=== PATIENT | female | born 1945 | race African-American/Black ===

== ENCOUNTER 2019-09-09 12:42 | Inpatient (IN) | payer MEDICARE, BC ==
[~2019-09-09] VITALS: Ht 167.6 cm; Wt 62.0 kg
[2019-09-09 13:17] LABS: BASO # 0.1 x10^3/uL (0.0-0.2); BASO % 1 % (0-3); EOS # 0.2 x10^3/uL (0.0-0.7); EOS % 2 % (0-3); HEMATOCRIT 30.9 % (36.0-47.0); HEMOGLOBIN 10.1 g/dL (12.0-15.5); LYMPH # 0.5 x10^3/uL (1.0-4.8); LYMPH % 5 % (24-48); MEAN CORPUSCULAR HEMOGLOBIN 34 pg (25-35); MEAN CORPUSCULAR HGB CONC 33 g/dL (31-37); MEAN CORPUSCULAR VOLUME 106 fL (79-100); MONO # 0.7 x10^3/uL (0.0-1.1); MONO % 6 % (0-9); NEUT # 9.6 x10^3/uL (1.8-7.7); NEUT % 87 % (31-73); PLATELET COUNT 238 x10^3/uL (140-400); RED BLOOD COUNT 2.93 x10^6/uL (3.50-5.40); RED CELL DISTRIBUTION WIDTH 17.5 % (11.5-14.5); WHITE BLOOD COUNT 11.1 x10^3/uL (4.0-11.0)
[2019-09-09 13:22] LABS: PROTHROMBIN TIME PATIENT 13.8 SEC (11.7-14.0)
[2019-09-09] MEDS ORDERED: MORPHINE SULFATE 4 MG/ML VIAL. IV ONE (13:30)
[2019-09-09] MEDS ORDERED: ONDANSETRON PF 4 MG/2 ML VIAL. IVP ONE (13:30)
[2019-09-09 13:31] LABS: CALCIUM 8.6 mg/dL (8.5-10.1); GFR 24.2; POTASSIUM 4.4 mmol/L (3.5-5.1)
[2019-09-09 13:37] LABS: ALBUMIN 3.7 g/dL (3.4-5.0); ALBUMIN/GLOBULIN RATIO 1.1 (1.0-1.7); TOTAL BILIRUBIN 0.4 mg/dL (0.2-1.0); TOTAL PROTEIN 7.1 g/dL (6.4-8.2)
--- NOTE | 2019-09-09 13:39 | PHYS DOC ---
General Adult EDM: Chief Complaint: HIP PAIN HPI: HPI: Patient is a 74 year old female presenting to the ED with a chief complaint of a fall. Patient states that she was home in her kitchen when she fell and landed on her right hip. Patient denies hitting her head. Patient states that she does not take a blood thinner. Patient does state that she has a history of diabetes and high blood pressure. Patient states that she had a pop on her right hip. Patient complains of tenderness to the right hip. Review of Systems: Review of Systems: Constitutional: Denies fever or chills. [] Eyes: Denies change in visual acuity. [] HENT: Denies nasal congestion or sore throat. [] Respiratory: Denies cough or shortness of breath. [] Cardiovascular: Denies chest pain or edema. [] GI: Denies abdominal pain, nausea, vomiting, bloody stools or diarrhea. [] : Denies dysuria. [] Musculoskeletal: She is like complains of pain to her right hip Heart Score: Risk Factors: Risk Factors: DM, Current or recent (<one month) smoker, HTN, HLP, family history of CAD, obesity. Risk Scores: Score 0 - 3: 2.5% MACE over next 6 weeks - Discharge Home Score 4 - 6: 20.3% MACE over next 6 weeks - Admit for Clinical Observation Score 7 - 10: 72.7% MACE over next 6 weeks - Early Invasive Strategies Current Medications: Current Medications Medications (Trade) Dose Ordered Sig/Liam Start Time Stop Time Status Last Admin Dose Admin Morphine Sulfate (Morphine Sulfate) 4 mg 1X ONCE 09/09/19 13:30 09/09/19 13:31 09/09/19 13:25 4 MG Ondansetron HCl (Zofran) 4 mg 1X ONCE 09/09/19 13:30 09/09/19 13:31 09/09/19 13:24 4 MG Allergies: Allergies: Allergies Coded Allergies Type Severity Reaction Last Updated Verified No Known Drug Allergies 09/09/19 No Physical Exam: PE: Constitutional: Well developed, well nourished, no acute distress, non-toxic appearance. [] HENT: Normocephalic, atraumatic Eyes: EOMI Neck: Normal range of motion, Supple Cardiovascular:Heart rate regular rhythm Lungs & Thorax: Bilateral breath sounds clear to auscultation [] Abdomen: Bowel sounds normal, soft, no tenderness Extremities: Tenderness to the right hip. Patient is neurovascularly intact right lower extremity. Neurologic: Alert and oriented X 3 Current Patient Data: Labs: Laboratory Tests Test 09/09/19 13:00 White Blood Count 11.1 x10^3/uL (4.0-11.0) H Red Blood Count 2.93 x10^6/uL (3.50-5.40) L Hemoglobin 10.1 g/dL (12.0-15.5) L Hematocrit 30.9 % (36.0-47.0) L Mean Corpuscular Volume 106 fL (79-100) H Mean Corpuscular Hemoglobin 34 pg (25-35) Mean Corpuscular Hemoglobin Concent 33 g/dL (31-37) Red Cell Distribution Width 17.5 % (11.5-14.5) H Platelet Count 238 x10^3/uL (140-400) Neutrophils (%) (Auto) 87 % (31-73) H Lymphocytes (%) (Auto) 5 % (24-48) L Monocytes (%) (Auto) 6 % (0-9) Eosinophils (%) (Auto) 2 % (0-3) Basophils (%) (Auto) 1 % (0-3) Neutrophils # (Auto) 9.6 x10^3/uL (1.8-7.7) H Lymphocytes # (Auto) 0.5 x10^3/uL (1.0-4.8) L Monocytes # (Auto) 0.7 x10^3/uL (0.0-1.1) Eosinophils # (Auto) 0.2 x10^3/uL (0.0-0.7) Basophils # (Auto) 0.1 x10^3/uL (0.0-0.2) Platelet Estimate Pending Prothrombin Time 13.8 SEC (11.7-14.0) Prothrombin Time INR 1.1 (0.8-1.1) Laboratory Tests 09/09/19 13:00 EKG: EKG: [] Radiology/Procedures: Radiology/Procedures: [] Impression: IMPRESSION: Mildly displaced comminuted intertrochanteric fracture of the proximal right femur. Course & Med Decision Making: Course & Med Decision Making Pertinent Labs and Imaging studies reviewed. (See chart for details) Ordered labs, x-rays right hip and pelvis. Also ordered morphine and Zofran. X-ray shows a mildly displaced comminuted intertrochanteric right hip fracture. Discussed results and plan of care with patient. I discussed case with Dr. Dia at 1:45 PM. He recommends that patient be admitted to the hospitalist service. Patient is given another dose of IV pain medication in the ER and Valium for the muscle cramps. Nawaf Disclaimer: Nawaf Disclaimer: This electronic medical record was generated, in whole or in part, using a voice recognition dictation system. Departure Departure Impression: Primary Impression: Hip fracture, right Disposition: ADMITTED INPATIENT Admitting Physician: SEB Condition: IMPROVED Justicifation of Admission Dx: Justifications for Admission: Justification of Admission Dx: Yes Fracture: Fracture PRADIP BAI DO Sep 09, 2019 13:39
--- NOTE | 2019-09-09 13:39 | RAD ---
Single view pelvis and two-view right hip dated 09/09/2019. No comparison available. Clinical data indication: Pain after injury. FINDINGS: Single view pelvis two-view right hip show comminuted fracture of the intertrochanteric right femur with mild displacement and mild medial angulation at the fracture site. No definite extension to the femoral neck. Pelvic ring is intact. No additional fractures are seen. Mild degenerative change of the bilateral hip joint and bilateral SI joint with spondylotic change of the lower lumbar spine. IMPRESSION: Mildly displaced comminuted intertrochanteric fracture of the proximal right femur. Electronically signed by: Ramon Esparza MD (09/09/2019 1:36 PM) [id number]
[2019-09-09] MEDS ORDERED: diazePAM 5 MG TABLET PO ONE (14:00)
[2019-09-09] MEDS ORDERED: HYDROmorphone 2 MG/ML VIAL IV ONE (14:00)
[2019-09-09] MEDS ORDERED: LORazepam 0.5 MG TABLET PO PRN (14:15)
[2019-09-09] MEDS ORDERED: ONDANSETRON PF 4 MG/2 ML VIAL. IV PRN (14:15)
[2019-09-09] MEDS ORDERED: DOCUSATE SODIUM 100 MG CAPSULE. PO PRN ×2 (14:15)
[2019-09-09] MEDS ORDERED: guaiFENesin ORAL 200 MG/10 ML LIQUID. PO PRN (14:15)
[2019-09-09] MEDS ORDERED: ZOLPIDEM 5 MG TABLET. PO PRN (14:15)
[2019-09-09] MEDS ORDERED: ALBUTEROL SULFATE 2.5 MG/3 ML NEBU. NEB PRN (14:15)
[2019-09-09] MEDS ORDERED: ACETAMINOPHEN 325 MG TABLET. PO PRN (14:15)
[2019-09-09 14:18] LABS: % EOS 2 % (0-5); % SEGS 85 % (35-66); PLT ESTIMATE ADEQUATE (ADEQUATE)
[2019-09-09 14:19] LABS: % LYMPHS 11 % (24-48); % MONOS 2 % (0-10); ANISOCYTOSIS SLIGHT
[2019-09-09] MEDS: HYDROmorphone 2 MG/ML VIAL IV PRN ×2 (15:06→17:48)
--- NOTE | 2019-09-09 16:27 | PDOC1 ---
History and Physical Date of Admission Date of Admission 09/09/2019 Identification/Chief Complaint Chief Complaint I fell Source Source: Chart review, Patient History of Present Illness History of Present Illness Patient is a 74-year-old female with past medical history of hypertension dyslipidemia who was in her usual state of health until this morning when well going to her kitchen apparently she fell from her own height landing on her right side. The patient experienced excruciating pain immediately there are no deformities evident but she could not stand due to the pain. The patient denies hearing any cracking sounds she denies lightheadedness prior to her event history of palpitations no history of atrial fibrillation or irregular heart beat, the patient denies seizure-like activity and certainly describes event that is a slip and fall. She was found to have a comminuted right femoral fracture and orthopedic data warehouse consultant was informed about the findings. We have been asked to admit the patient for definitive treatment of her fracture. That the time my evaluation the patient is in no acute distress she denies any h eadache blurred vision no chest pain or palpitations no recent paroxysmal internal dyspnea no orthopnea or symptoms consistent with chronic congestive heart failure. The patient denies abdominal pain no nausea no vomiting no diarrhea has been reported and no peripheral edema. Patient seems to be maximally optimized from a medical standpoint of view and the plan of care has been explained in detail to her and her sister who is at bedside. Orthopedic data warehouse consultant has been informed about the patient and has requested to keep the patient n.p.o. after midnight for possible surgery in the a.m. Patient seems to be medically optimized for planned surgery and she is undergoing a moderate risk surgery most likely. Reassurance has been provided Past Medical History Cardiovascular: HTN, Hyperlipidemia Endocrine: Diabetes Past Surgical History Past Surgical History: No pertinent history Family History Family History: Other (Reviewed and found negative noncontributory) Social History Smoke: No ALCOHOL: none Drugs: None Current Problem List Problem List Problems Medical Problems: (1) Hip fracture, right Status: Acute Current Medications Current Medications Current Medications Medications (Trade) Dose Ordered Sig/Liam Start Time Stop Time Status Last Admin Dose Admin Acetaminophen (Tylenol) 650 mg PRN Q4HRS PRN 09/09/19 14:15 Albuterol Sulfate (Ventolin Neb Soln) 2.5 mg PRN Q4HRS PRN 09/09/19 14:15 Diazepam (Valium) 5 mg 1X ONCE 09/09/19 14:00 09/09/19 14:01 DC 09/09/19 13:54 5 MG Docusate Sodium (Colace) 100 mg PRN DAILY PRN 09/09/19 14:15 UNV Guaifenesin (Robitussin) 200 mg PRN Q4HRS PRN 09/09/19 14:15 Hydromorphone HCl (Dilaudid) 1 mg PRN Q2HRS PRN 09/09/19 14:15 09/09/19 15:06 1 MG Lorazepam (Ativan) 0.5 mg PRN Q4HRS PRN 09/09/19 14:15 Morphine Sulfate (Morphine Sulfate) 4 mg 1X ONCE 09/09/19 13:30 09/09/19 13:31 DC 09/09/19 13:25 4 MG Ondansetron HCl (Zofran) 4 mg PRN Q4HRS PRN 09/09/19 14:15 Zolpidem Tartrate (Ambien) 5 mg PRN QHS PRN 09/09/19 14:15 Allergies Allergies Allergies Coded Allergies Type Severity Reaction Last Updated Verified No Known Drug Allergies 09/09/19 No ROS Review of System CONSTITUTIONAL: No fever or chills EYES: No recent changes SKIN: No rash or itching CARDIOVASCULAR: No chest pain, syncope, palpitations, or edema RESPIRATORY: No SOB or cough GASTROINTESTINAL: No nausea, vomiting or abdominal pain NEUROLOGICAL: No headaches or weakness ENDOCRINE: No cold or heat intolerance GENITOURINARY: No urgency or frequency of urination MUSCULOSKELETAL: No back pain or joint pain LYMPHATICS: No enlarged lymph nodes PSYCHIATRIC: No anxiety or depression Physical Exam Physical Exam GEN.: No apparent distress. Alert and oriented. HEENT: Head is normocephalic, atraumatic NECK: Supple. LUNGS: Clear to auscultation. HEART: RRR, S1, S2 present. Peripheral pulses intact ABDOMEN: Soft, nontender. Positive bowel sounds. EXTREMITIES: Without any cyanosis. NEUROLOGIC: Normal speech, normal tone PSYCHIATRIC: Normal affect, normal mood. SKIN: No ulcerations Vitals Vitals Vital Signs Date Time Temp Pulse Resp B/P (MAP) Pulse Ox O2 Delivery O2 Flow Rate FiO2 09/09/19 15:48 70 18 184/79 (114) 100 Nasal Cannula 2.0 09/09/19 12:50 98.6 98.6 Labs Labs Laboratory Tests Test 09/09/19 13:00 White Blood Count 11.1 x10^3/uL (4.0-11.0) Red Blood Count 2.93 x10^6/uL (3.50-5.40) Hemoglobin 10.1 g/dL (12.0-15.5) Hematocrit 30.9 % (36.0-47.0) Mean Corpuscular Volume 106 fL (79-100) Mean Corpuscular Hemoglobin 34 pg (25-35) Mean Corpuscular Hemoglobin Concent 33 g/dL (31-37) Red Cell Distribution Width 17.5 % (11.5-14.5) Platelet Count 238 x10^3/uL (140-400) Neutrophils (%) (Auto) 87 % (31-73) Lymphocytes (%) (Auto) 5 % (24-48) Monocytes (%) (Auto) 6 % (0-9) Eosinophils (%) (Auto) 2 % (0-3) Basophils (%) (Auto) 1 % (0-3) Neutrophils # (Auto) 9.6 x10^3/uL (1.8-7.7) Lymphocytes # (Auto) 0.5 x10^3/uL (1.0-4.8) Monocytes # (Auto) 0.7 x10^3/uL (0.0-1.1) Eosinophils # (Auto) 0.2 x10^3/uL (0.0-0.7) Basophils # (Auto) 0.1 x10^3/uL (0.0-0.2) Segmented Neutrophils % 85 % (35-66) Lymphocytes % 11 % (24-48) Monocytes % 2 % (0-10) Eosinophils % 2 % (0-5) Platelet Estimate Adequate (ADEQUATE) Anisocytosis Slight Macrocytosis Slight Prothrombin Time 13.8 SEC (11.7-14.0) Prothromb Time International Ratio 1.1 (0.8-1.1) Sodium Level 135 mmol/L (136-145) Potassium Level 4.4 mmol/L (3.5-5.1) Chloride Level 101 mmol/L (98-107) Carbon Dioxide Level 25 mmol/L (21-32) Anion Gap 9 (6-14) Blood Urea Nitrogen 36 mg/dL (7-20) Creatinine 2.0 mg/dL (0.6-1.0) Estimated GFR (Cockcroft-Gault) 24.2 BUN/Creatinine Ratio 18 (6-20) Glucose Level 251 mg/dL (70-99) Calcium Level 8.6 mg/dL (8.5-10.1) Total Bilirubin 0.4 mg/dL (0.2-1.0) Aspartate Amino Transf (AST/SGOT) 21 U/L (15-37) Alanine Aminotransferase (ALT/SGPT) 17 U/L (14-59) Alkaline Phosphatase 83 U/L (46-116) Total Protein 7.1 g/dL (6.4-8.2) Albumin 3.7 g/dL (3.4-5.0) Albumin/Globulin Ratio 1.1 (1.0-1.7) Laboratory Tests Test 09/09/19 13:00 White Blood Count 11.1 x10^3/uL (4.0-11.0) Red Blood Count 2.93 x10^6/uL (3.50-5.40) Hemoglobin 10.1 g/dL (12.0-15.5) Hematocrit 30.9 % (36.0-47.0) Mean Corpuscular Volume 106 fL (79-100) Mean Corpuscular Hemoglobin 34 pg (25-35) Mean Corpuscular Hemoglobin Concent 33 g/dL (31-37) Red Cell Distribution Width 17.5 % (11.5-14.5) Platelet Count 238 x10^3/uL (140-400) Neutrophils (%) (Auto) 87 % (31-73) Lymphocytes (%) (Auto) 5 % (24-48) Monocytes (%) (Auto) 6 % (0-9) Eosinophils (%) (Auto) 2 % (0-3) Basophils (%) (Auto) 1 % (0-3) Neutrophils # (Auto) 9.6 x10^3/uL (1.8-7.7) Lymphocytes # (Auto) 0.5 x10^3/uL (1.0-4.8) Monocytes # (Auto) 0.7 x10^3/uL (0.0-1.1) Eosinophils # (Auto) 0.2 x10^3/uL (0.0-0.7) Basophils # (Auto) 0.1 x10^3/uL (0.0-0.2) Segmented Neutrophils % 85 % (35-66) Lymphocytes % 11 % (24-48) Monocytes % 2 % (0-10) Eosinophils % 2 % (0-5) Platelet Estimate Adequate (ADEQUATE) Anisocytosis Slight Macrocytosis Slight Prothrombin Time 13.8 SEC (11.7-14.0) Prothromb Time International Ratio 1.1 (0.8-1.1) Sodium Level 135 mmol/L (136-145) Potassium Level 4.4 mmol/L (3.5-5.1) Chloride Level 101 mmol/L (98-107) Carbon Dioxide Level 25 mmol/L (21-32) Anion Gap 9 (6-14) Blood Urea Nitrogen 36 mg/dL (7-20) Creatinine 2.0 mg/dL (0.6-1.0) Estimated GFR (Cockcroft-Gault) 24.2 BUN/Creatinine Ratio 18 (6-20) Glucose Level 251 mg/dL (70-99) Calcium Level 8.6 mg/dL (8.5-10.1) Total Bilirubin 0.4 mg/dL (0.2-1.0) Aspartate Amino Transf (AST/SGOT) 21 U/L (15-37) Alanine Aminotransferase (ALT/SGPT) 17 U/L (14-59) Alkaline Phosphatase 83 U/L (46-116) Total Protein 7.1 g/dL (6.4-8.2) Albumin 3.7 g/dL (3.4-5.0) Albumin/Globulin Ratio 1.1 (1.0-1.7) Images Images Single view pelvis and two-view right hip dated 09/09/2019. No comparison available. Clinical data indication: Pain after injury. FINDINGS: Single view pelvis two-view right hip show comminuted fracture of the intertrochanteric right femur with mild displacement and mild medial angulation at the fracture site. No definite extension to the femoral neck. Pelvic ring is intact. No additional fractures are seen. Mild degenerative change of the bilateral hip joint and bilateral SI joint with spondylotic change of the lower lumbar spine. IMPRESSION: Mildly displaced comminuted intertrochanteric fracture of the proximal right femur. Electronically signed by: Ramon Esparza MD (09/09/2019 1:36 PM) [id number] VTE Prophylaxis Ordered VTE Prophylaxis Devices: Yes VTE Pharmacological Prophylaxi: Yes Assessment/Plan Assessment/Plan mildly displaced comminuted intertrochanteric right hip fracture. Essential hypertension Dyslipidemia Leukocytosis which may be reactive to the trauma Macrocytic anemia Hyponatremia Chronic kidney disease stage IV Hyperglycemia most likely reactive Plan Restart home medication Glycemic control Beta-jillian perioperatively Patient is medically optimized and at acceptable risk for planned surgery which is intermediate risk Pain management DVT prophylaxis as per orthopedic data warehouse consultant Further recommendations based on clinical course Justicifation of Admission Dx: Justifications for Admission: Justification of Admission Dx: Yes Fracture: Fracture MARY LOU MCGUIRE MD Sep 09, 2019 16:27
[2019-09-09] MEDS ORDERED: INSULIN GLARGINE SYRINGE. SQ ONE (16:30)
[2019-09-09] MEDS ORDERED: DEXTROSE 50% 25 GM / 50ML DISP.SYRIN. IV PRN (16:30)
[2019-09-09] MEDS ORDERED: METO-247 PO (16:44)
[2019-09-09] MEDS ORDERED: SITA100T PO (16:47)
[2019-09-09] MEDS ORDERED: METF100010 PO (16:47)
[2019-09-09] MEDS ORDERED: LISI-130 PO (16:47)
[2019-09-09] MEDS ORDERED: SIMV20TA18 PO (16:47)
[2019-09-09] MEDS: INSULIN LISPRO 300 UNITS/3 ML VIAL. SQ SCH (17:56)
[2019-09-09 19:00] VITALS: BP 143/68
[2019-09-09 23:00] VITALS: BP 141/63
[2019-09-10] VITALS (7 sets, daily range): BP systolic 141–161; BP diastolic 47–71
[2019-09-10] MEDS: HYDROmorphone 2 MG/ML VIAL IV PRN ×2 (02:40→21:41)
[2019-09-10] MEDS ORDERED: MORPHINE SULFATE 5 MG, KETOROLAC 30MG VIAL 30 MG, ROPIVacaine 0.5% PF 60 ML, EPINEPHrin... INT ART ONE (08:00)
--- NOTE | 2019-09-10 08:06 | PDOC2 ---
CONSULT Date of Consult Date of Consult DATE: 09/10/19 TIME: 08:02 Reason for Consult Reason for Consult: Right hip fracture Referring Physician Referring Physician: Renée Identification/Chief Complaint Chief Complaint Right hip pain Source Source: Chart review, Patient History of Present Illness Reason for Visit: Patient is a very pleasant 74-year-old community ambulator who had a ground- level fall at her home yesterday. Due to pain and inability to ambulate she was brought into the emergency department where he was found she had a right intertrochanteric hip fracture. She denies any preceding hip pain. She denies any preceding symptoms or hitting her head on her way down. Her hip pain is worse with any attempted ambulation or movement of her leg. It is a little bit better at rest. She describes it as achy and cramping in nature. It does radiate down her thigh little ways but does not cross her knee. She denies any other pain elsewhere. Past Medical History Cardiovascular: HTN, Hyperlipidemia Endocrine: Diabetes Past Surgical History Past Surgical History: No pertinent history Family History Family History: Other (Reviewed and found negative noncontributory) Social History No ALCOHOL: none Drugs: None Current Problem List Problem List Problems Medical Problems: (1) Hip fracture, right Status: Acute Current Medications Current Medications Current Medications Morphine Sulfate (Morphine Sulfate) 4 mg 1X ONCE IV Last administered on 09/09/19at 13:25; Start 09/09/19 at 13:30; Stop 09/09/19 at 13:31; Status DC Ondansetron HCl (Zofran) 4 mg 1X ONCE IVP Last administered on 09/09/19at 13:24; Start 09/09/19 at 13:30; Stop 09/09/19 at 13:31; Status DC Hydromorphone HCl (Dilaudid) 1 mg 1X ONCE IV Last administered on 09/09/19at 13:56; Start 09/09/19 at 14:00; Stop 09/09/19 at 14:01; Status DC Diazepam (Valium) 5 mg 1X ONCE PO Last administered on 09/09/19at 13:54; Start 09/09/19 at 14:00; Stop 09/09/19 at 14:01; Status DC Ondansetron HCl (Zofran) 4 mg PRN Q4HRS PRN IV NAUSEA/VOMITING; Start 09/09/19 at 14:15 Zolpidem Tartrate (Ambien) 5 mg PRN QHS PRN PO INSOMNIA; Start 09/09/19 at 1 4:15 Acetaminophen (Tylenol) 650 mg PRN Q4HRS PRN PO TEMP OVER 100.4F OR MILD PAIN; Start 09/09/19 at 14:15 Docusate Sodium (Colace) 100 mg PRN BID PRN PO HARD STOOLS; Start 09/09/19 at 14:15 Albuterol Sulfate (Ventolin Neb Soln) 2.5 mg PRN Q4HRS PRN NEB SHORTNESS OF BREATH; Start 09/09/19 at 14:15 Guaifenesin (Robitussin) 200 mg PRN Q4HRS PRN PO COUGH; Start 09/09/19 at 14:15 Lorazepam (Ativan) 0.5 mg PRN Q4HRS PRN PO ANXIETY / AGITATION; Start 09/09/19 at 14:15 Hydromorphone HCl (Dilaudid) 1 mg PRN Q2HRS PRN IV SEVERE PAIN 7-10 Last administered on 09/10/19at 02:40; Start 09/09/19 at 14:15 Docusate Sodium (Colace) 100 mg PRN DAILY PRN PO HARD STOOLS; Start 09/09/19 at 14:15; Status UNV Insulin Human Lispro (HumaLOG) 0-7 UNITS TIDWMEALS SQ Last administered on 09/09/19at 17:56; Start 09/09/19 at 17:00 Dextrose (Dextrose 50%-Water Syringe) 12.5 gm PRN Q15MIN PRN IV SEE COMMENTS; Start 09/09/19 at 16:30 Insulin Glargine (Lantus Syringe) 10 unit ONCE ONCE SQ ; Start 09/09/19 at 16:30; Stop 09/09/19 at 16:31; Status DC Morphine Sulfate 5 mg/Ketorolac Tromethamine 30 mg/Ropivacaine 60 ml/Epinephrine HCl 0.5 mg/Sodium Chloride 100 ml @ 100 mls/hr 1X ONCE INT ART ; Start 09/10/19 at 08:00; Stop 09/10/19 at 08:59 Active Scripts Active Reported Lisinopril 40 Mg Tablet 1 Tab PO DAILY Simvastatin 20 Mg Tablet 1 Tab PO QHS Januvia (Sitagliptin Phosphate) 100 Mg Tablet 100 Mg PO DAILY Metformin Hcl Er (Metformin Hcl) 1,000 Mg Tab.er.24 1,000 Mg PO BID Metoprolol Succinate ( Xl ) (Metoprolol Succinate) 100 Mg Tab.er.24h 1 Tab PO DAILY Allergies Allergies: Coded Allergies: No Known Drug Allergies (Unverified , 09/09/19) ROS General: No: Chills, Night Sweats, Fatigue, Malaise, Appetite, Other PSYCHOLOGICAL ROS: No: Anxiety, Behavioral Disorder, Concentration difficultie, Decreased libido, Depression, Disorientation, Hallucinations, Hostility, Irritablity, Memory difficulties, Mood Swings, Obsessive thoughts, Physical abuse, Sexual abuse, Sleep disturbances, Suicidal ideation, Other Eyes: No Blurry vision, No Decreased vision, No Double vision, No Dry eyes, No Excessive tearing, No Eye Pain, No Itchy Eyes, No Loss of vision, No Photophobia, No Scotomata, No Uses contacts, No Uses glasses, No Other HEENT: No: Heacaches, Visual Changes, Hearing change, Nasal congestion, Nasal discharge, Oral lesions, Sinus pain, Sore Throat, Epistaxis, Sneezing, Snoring, Tinnitus, Vertigo, Vocal changes, Other ALLERGY AND IMMUNOLOGY: No: Hives, Insect Bite Sensitivity, Itchy/Watery Eyes, Nasal Congestion, Post Nasal Drip, Seasonal Allergies, Other Hematological and Lymphatic: No: Bleeding Problems, Blood Clots, Blood Transfusions, Brusing, Night Sweats, Pallor, Swollen Lymph Nodes, Other ENDOCRINE: No: Breast Changes, Galactorrhea, Hair Pattern Changes, Hot Flashes, Malaise/lethargy, Mood Swings, Palpitations, Polydipsia/polyuria, Skin Changes, Temperature Intolerance, Unexpected Weight Changes, Other Respiratory: No: Cough, Hemoptysis, Orthopnea, Pleuritic Pain, Shortness of breath, SOB with excertion, Sputum Changes, Stridor, Tachypnea, Wheezing, Other Cardiovascular: No Chest Pain, No Palpitations, No Orthopnea, No Paroxysmal Noc. Dyspnea, No Edema, No Lt Headedness, No Other Gastrointestinal: No Nausea, No Vomiting, No Abdominal Pain, No Diarrhea, No Constipation, No Melena, No Hematochezia, No Other Genitourinary: No Dysuria, No Frequency, No Incontinence, No Hematuria, No Retention, No Discharge, No Urgency, No Pain, No Flank Pain, No Other, No , No , No , No , No , No , No Musculoskeletal: Yes Joint Pain, Yes Joint Stiffness Neurological: No Behavorial Changes, No Bowel/Bladder ControlChng, No Confusion, No Dizziness, No Gait Disturbance, No Headaches, No Impaired Coord/balance, No Memory Loss, No Numbness/Tingling, No Seizures, No Speech Problems, No Tremors, No Visual Changes, No Weakness, No Other Skin: No Dry Skin, No Eczema, No Hair Changes, No Lumps, No Mole Changes, No Mo ttling, No Nail Changes, No Pruritus, No Rash, No Skin Lesion Changes, No Other, No Acne Physical Exam General: Alert, Oriented X3 HEENT: Atraumatic, EOMI Lungs: Other (Respirations are unlabored with symmetric chest rise) Heart: Regular rate, Other Abdomen: Soft, No tenderness Extremities: No edema, Normal pulses Skin: No rashes Neuro: Normal speech, Strength at 5/5 X4 ext, Sensation intact Psych/Mental Status: Mental status NL, Mood NL MUSCULOSKELETAL: Other (On examination, she is lying in bed, she has small amount of shortening and external rotation at her right lower extremity. She can wiggle her toes and has normal sensation distally. She is diffusely tender around her hip. No tenderness at knees feet or ankles.) Vitals VITALS Vital Signs Date Time Temp Pulse Resp B/P (MAP) Pulse Ox O2 Delivery O2 Flow Rate FiO2 09/10/19 07:00 98.5 77 20 154/47 (82) 96 Room Air 98.5 09/09/19 16:56 2.0 Labs Labs Laboratory Tests Test 09/09/19 13:00 09/09/19 17:07 09/09/19 20:56 09/10/19 07:38 White Blood Count 11.1 x10^3/uL (4.0-11.0) Red Blood Count 2.93 x10^6/uL (3.50-5.40) Hemoglobin 10.1 g/dL (12.0-15.5) Hematocrit 30.9 % (36.0-47.0) Mean Corpuscular Volume 106 fL (79-100) Mean Corpuscular Hemoglobin 34 pg (25-35) Mean Corpuscular Hemoglobin Concent 33 g/dL (31-37) Red Cell Distribution Width 17.5 % (11.5-14.5) Platelet Count 238 x10^3/uL (140-400) Neutrophils (%) (Auto) 87 % (31-73) Lymphocytes (%) (Auto) 5 % (24-48) Monocytes (%) (Auto) 6 % (0-9) Eosinophils (%) (Auto) 2 % (0-3) Basophils (%) (Auto) 1 % (0-3) Neutrophils # (Auto) 9.6 x10^3/uL (1.8-7.7) Lymphocytes # (Auto) 0.5 x10^3/uL (1.0-4.8) Monocytes # (Auto) 0.7 x10^3/uL (0.0-1.1) Eosinophils # (Auto) 0.2 x10^3/uL (0.0-0.7) Basophils # (Auto) 0.1 x10^3/uL (0.0-0.2) Segmented Neutrophils % 85 % (35-66) Lymphocytes % 11 % (24-48) Monocytes % 2 % (0-10) Eosinophils % 2 % (0-5) Platelet Estimate Adequate (ADEQUATE) Anisocytosis Slight Macrocytosis Slight Prothrombin Time 13.8 SEC (11.7-14.0) Prothromb Time International Ratio 1.1 (0.8-1.1) Sodium Level 135 mmol/L (136-145) Potassium Level 4.4 mmol/L (3.5-5.1) Chloride Level 101 mmol/L (98-107) Carbon Dioxide Level 25 mmol/L (21-32) Anion Gap 9 (6-14) Blood Urea Nitrogen 36 mg/dL (7-20) Creatinine 2.0 mg/dL (0.6-1.0) Estimated GFR (Cockcroft-Gault) 24.2 BUN/Creatinine Ratio 18 (6-20) Glucose Level 251 mg/dL (70-99) Calcium Level 8.6 mg/dL (8.5-10.1) Total Bilirubin 0.4 mg/dL (0.2-1.0) Aspartate Amino Transf (AST/SGOT) 21 U/L (15-37) Alanine Aminotransferase (ALT/SGPT) 17 U/L (14-59) Alkaline Phosphatase 83 U/L (46-116) Total Protein 7.1 g/dL (6.4-8.2) Albumin 3.7 g/dL (3.4-5.0) Albumin/Globulin Ratio 1.1 (1.0-1.7) Glucose (Fingerstick) 158 mg/dL (70-99) 194 mg/dL (70-99) 155 mg/dL (70-99) Laboratory Tests Test 09/09/19 13:00 09/09/19 17:07 09/09/19 20:56 09/10/19 07:38 White Blood Count 11.1 x10^3/uL (4.0-11.0) Red Blood Count 2.93 x10^6/uL (3.50-5.40) Hemoglobin 10.1 g/dL (12.0-15.5) Hematocrit 30.9 % (36.0-47.0) Mean Corpuscular Volume 106 fL (79-100) Mean Corpuscular Hemoglobin 34 pg (25-35) Mean Corpuscular Hemoglobin Concent 33 g/dL (31-37) Red Cell Distribution Width 17.5 % (11.5-14.5) Platelet Count 238 x10^3/uL (140-400) Neutrophils (%) (Auto) 87 % (31-73) Lymphocytes (%) (Auto) 5 % (24-48) Monocytes (%) (Auto) 6 % (0-9) Eosinophils (%) (Auto) 2 % (0-3) Basophils (%) (Auto) 1 % (0-3) Neutrophils # (Auto) 9.6 x10^3/uL (1.8-7.7) Lymphocytes # (Auto) 0.5 x10^3/uL (1.0-4.8) Monocytes # (Auto) 0.7 x10^3/uL (0.0-1.1) Eosinophils # (Auto) 0.2 x10^3/uL (0.0-0.7) Basophils # (Auto) 0.1 x10^3/uL (0.0-0.2) Segmented Neutrophils % 85 % (35-66) Lymphocytes % 11 % (24-48) Monocytes % 2 % (0-10) Eosinophils % 2 % (0-5) Platelet Estimate Adequate (ADEQUATE) Anisocytosis Slight Macrocytosis Slight Prothrombin Time 13.8 SEC (11.7-14.0) Prothromb Time International Ratio 1.1 (0.8-1.1) Sodium Level 135 mmol/L (136-145) Potassium Level 4.4 mmol/L (3.5-5.1) Chloride Level 101 mmol/L (98-107) Carbon Dioxide Level 25 mmol/L (21-32) Anion Gap 9 (6-14) Blood Urea Nitrogen 36 mg/dL (7-20) Creatinine 2.0 mg/dL (0.6-1.0) Estimated GFR (Cockcroft-Gault) 24.2 BUN/Creatinine Ratio 18 (6-20) Glucose Level 251 mg/dL (70-99) Calcium Level 8.6 mg/dL (8.5-10.1) Total Bilirubin 0.4 mg/dL (0.2-1.0) Aspartate Amino Transf (AST/SGOT) 21 U/L (15-37) Alanine Aminotransferase (ALT/SGPT) 17 U/L (14-59) Alkaline Phosphatase 83 U/L (46-116) Total Protein 7.1 g/dL (6.4-8.2) Albumin 3.7 g/dL (3.4-5.0) Albumin/Globulin Ratio 1.1 (1.0-1.7) Glucose (Fingerstick) 158 mg/dL (70-99) 194 mg/dL (70-99) 155 mg/dL (70-99) Images Images Hip and pelvis x-rays were interpreted by myself. She has a comminuted right intertrochanteric hip fracture Assessment/Plan Assessment/Plan I did discuss proceeding with surgery with her in the form of a intramedullary nail. I discussed the rationale for this. We talked about the risks, benefits, and alternatives including bleeding, infection, need for additional surgery, lack of healing and need for subsequent revision, hardware problems, pain and expected rehab after surgery, possible full length of hospital stay, general medical problems, among others. We will plan on proceeding when her COVID test is negative given hospital policy. LESLYE HEAD II, MD Sep 10, 2019 08:06
--- NOTE | 2019-09-10 08:29 | PDOC ---
PROGRESS NOTES Chief Complaint Chief Complaint mildly displaced comminuted intertrochanteric right hip fracture - plan for IM nail on 09/11/2019 Essential hypertension - hold GOGO for WILBERTO. Cont BB perioperatively Dyslipidemia Leukocytosis which may be reactive to the trauma Macrocytic anemia - will check B12 Hyponatremia - likely nutritional, will encourage PO Chronic kidney disease stage IV - will give IVF pre-op DM2 - with Hyperglycemia most likely reactive. Hold metformin FEN - NPO after midnight PPX - d/w patient and family low dose eliquis vs warfarin post-operatively. FULL CODE Dispo - inpatient for above History of Present Illness History of Present Illness Ms Elder is a 74 yo F w/ PMHx hypertension, dyslipidemia, DM2 who was in her usual state of health until going to her kitchen apparently she fell from her own height landing on her right side. The patient experienced excruciating pain immediately there are no deformities evident but she could not stand due to the pain. The patient denies hearing any cracking sounds she denies lightheadedness prior to her event history of palpitations no history of atrial fibrillation or irregular heartbeat, the patient denies seizure-like activity and certainly describes event that is a slip and fall. She was found to have a comminuted right femoral fracture and orthopedic medical cost consultant was informed about the findings. We have been asked to admit the patient for definitive treatment of her fracture. The patient denies abdominal pain no nausea no vomiting no diarrhea has been reported and no peripheral edema. Patient seems to be maximally optimized from a medical standpoint of view and the plan of care has been explained in detail to her and her sister who is at bedside. Orthopedic medical cost consultant has been informed about the patient and has requested to keep the patient n.p.o. after midnight for possible surgery in the a.m. Patient seems to be medically optimized for planned surgery and she is undergoing a moderate risk surgery most likely. Hb 9.9, Cr 1.6. She has not had a BM in a day. Plan: NPO after midnight She is worried about cost with NOACs, considering her januvia is $30 per month and with her WILBERTO may be more appropriate to use warfarin given her renal dysfunction as well, would recommend warfarin post-op thromboprophylaxis or renally dosed 30mg lovenox if she is not ambulatory Vitals Vitals Vital Signs Date Time Temp Pulse Resp B/P (MAP) Pulse Ox O2 Delivery O2 Flow Rate FiO2 09/10/19 07:00 98.5 77 20 154/47 (82) 96 Room Air 98.5 09/09/19 16:56 2.0 Physical Exam General: Alert, Oriented X3 Heart: Regular rate, Other Abdomen: Soft, No tenderness Extremities: No edema, Normal pulses Skin: No rashes Labs LABS Laboratory Tests Test 09/09/19 13:00 09/09/19 17:07 09/09/19 20:56 09/10/19 07:38 White Blood Count 11.1 x10^3/uL (4.0-11.0) Red Blood Count 2.93 x10^6/uL (3.50-5.40) Hemoglobin 10.1 g/dL (12.0-15.5) Hematocrit 30.9 % (36.0-47.0) Mean Corpuscular Volume 106 fL (79-100) Mean Corpuscular Hemoglobin 34 pg (25-35) Mean Corpuscular Hemoglobin Concent 33 g/dL (31-37) Red Cell Distribution Width 17.5 % (11.5-14.5) Platelet Count 238 x10^3/uL (140-400) Neutrophils (%) (Auto) 87 % (31-73) Lymphocytes (%) (Auto) 5 % (24-48) Monocytes (%) (Auto) 6 % (0-9) Eosinophils (%) (Auto) 2 % (0-3) Basophils (%) (Auto) 1 % (0-3) Neutrophils # (Auto) 9.6 x10^3/uL (1.8-7.7) Lymphocytes # (Auto) 0.5 x10^3/uL (1.0-4.8) Monocytes # (Auto) 0.7 x10^3/uL (0.0-1.1) Eosinophils # (Auto) 0.2 x10^3/uL (0.0-0.7) Basophils # (Auto) 0.1 x10^3/uL (0.0-0.2) Segmented Neutrophils % 85 % (35-66) Lymphocytes % 11 % (24-48) Monocytes % 2 % (0-10) Eosinophils % 2 % (0-5) Platelet Estimate Adequate (ADEQUATE) Anisocytosis Slight Macrocytosis Slight Prothrombin Time 13.8 SEC (11.7-14.0) Prothromb Time International Ratio 1.1 (0.8-1.1) Sodium Level 135 mmol/L (136-145) Potassium Level 4.4 mmol/L (3.5-5.1) Chloride Level 101 mmol/L (98-107) Carbon Dioxide Level 25 mmol/L (21-32) Anion Gap 9 (6-14) Blood Urea Nitrogen 36 mg/dL (7-20) Creatinine 2.0 mg/dL (0.6-1.0) Estimated GFR (Cockcroft-Gault) 24.2 BUN/Creatinine Ratio 18 (6-20) Glucose Level 251 mg/dL (70-99) Calcium Level 8.6 mg/dL (8.5-10.1) Total Bilirubin 0.4 mg/dL (0.2-1.0) Aspartate Amino Transf (AST/SGOT) 21 U/L (15-37) Alanine Aminotransferase (ALT/SGPT) 17 U/L (14-59) Alkaline Phosphatase 83 U/L (46-116) Total Protein 7.1 g/dL (6.4-8.2) Albumin 3.7 g/dL (3.4-5.0) Albumin/Globulin Ratio 1.1 (1.0-1.7) Glucose (Fingerstick) 158 mg/dL (70-99) 194 mg/dL (70-99) 155 mg/dL (70-99) Assessment and Plan Assessmemt and Plan Problems Medical Problems: (1) Hip fracture, right Status: Acute Comment Review of Relevant I have reviewed the following items tyler (where applicable) has been applied. Labs Laboratory Tests Test 09/09/19 13:00 09/09/19 17:07 09/09/19 20:56 09/10/19 07:38 White Blood Count 11.1 x10^3/uL (4.0-11.0) Red Blood Count 2.93 x10^6/uL (3.50-5.40) Hemoglobin 10.1 g/dL (12.0-15.5) Hematocrit 30.9 % (36.0-47.0) Mean Corpuscular Volume 106 fL (79-100) Mean Corpuscular Hemoglobin 34 pg (25-35) Mean Corpuscular Hemoglobin Concent 33 g/dL (31-37) Red Cell Distribution Width 17.5 % (11.5-14.5) Platelet Count 238 x10^3/uL (140-400) Neutrophils (%) (Auto) 87 % (31-73) Lymphocytes (%) (Auto) 5 % (24-48) Monocytes (%) (Auto) 6 % (0-9) Eosinophils (%) (Auto) 2 % (0-3) Basophils (%) (Auto) 1 % (0-3) Neutrophils # (Auto) 9.6 x10^3/uL (1.8-7.7) Lymphocytes # (Auto) 0.5 x10^3/uL (1.0-4.8) Monocytes # (Auto) 0.7 x10^3/uL (0.0-1.1) Eosinophils # (Auto) 0.2 x10^3/uL (0.0-0.7) Basophils # (Auto) 0.1 x10^3/uL (0.0-0.2) Segmented Neutrophils % 85 % (35-66) Lymphocytes % 11 % (24-48) Monocytes % 2 % (0-10) Eosinophils % 2 % (0-5) Platelet Estimate Adequate (ADEQUATE) Anisocytosis Slight Macrocytosis Slight Prothrombin Time 13.8 SEC (11.7-14.0) Prothromb Time International Ratio 1.1 (0.8-1.1) Sodium Level 135 mmol/L (136-145) Potassium Level 4.4 mmol/L (3.5-5.1) Chloride Level 101 mmol/L (98-107) Carbon Dioxide Level 25 mmol/L (21-32) Anion Gap 9 (6-14) Blood Urea Nitrogen 36 mg/dL (7-20) Creatinine 2.0 mg/dL (0.6-1.0) Estimated GFR (Cockcroft-Gault) 24.2 BUN/Creatinine Ratio 18 (6-20) Glucose Level 251 mg/dL (70-99) Calcium Level 8.6 mg/dL (8.5-10.1) Total Bilirubin 0.4 mg/dL (0.2-1.0) Aspartate Amino Transf (AST/SGOT) 21 U/L (15-37) Alanine Aminotransferase (ALT/SGPT) 17 U/L (14-59) Alkaline Phosphatase 83 U/L (46-116) Total Protein 7.1 g/dL (6.4-8.2) Albumin 3.7 g/dL (3.4-5.0) Albumin/Globulin Ratio 1.1 (1.0-1.7) Glucose (Fingerstick) 158 mg/dL (70-99) 194 mg/dL (70-99) 155 mg/dL (70-99) Laboratory Tests Test 09/09/19 13:00 09/09/19 17:07 09/09/19 20:56 09/10/19 07:38 White Blood Count 11.1 x10^3/uL (4.0-11.0) Red Blood Count 2.93 x10^6/uL (3.50-5.40) Hemoglobin 10.1 g/dL (12.0-15.5) Hematocrit 30.9 % (36.0-47.0) Mean Corpuscular Volume 106 fL (79-100) Mean Corpuscular Hemoglobin 34 pg (25-35) Mean Corpuscular Hemoglobin Concent 33 g/dL (31-37) Red Cell Distribution Width 17.5 % (11.5-14.5) Platelet Count 238 x10^3/uL (140-400) Neutrophils (%) (Auto) 87 % (31-73) Lymphocytes (%) (Auto) 5 % (24-48) Monocytes (%) (Auto) 6 % (0-9) Eosinophils (%) (Auto) 2 % (0-3) Basophils (%) (Auto) 1 % (0-3) Neutrophils # (Auto) 9.6 x10^3/uL (1.8-7.7) Lymphocytes # (Auto) 0.5 x10^3/uL (1.0-4.8) Monocytes # (Auto) 0.7 x10^3/uL (0.0-1.1) Eosinophils # (Auto) 0.2 x10^3/uL (0.0-0.7) Basophils # (Auto) 0.1 x10^3/uL (0.0-0.2) Segmented Neutrophils % 85 % (35-66) Lymphocytes % 11 % (24-48) Monocytes % 2 % (0-10) Eosinophils % 2 % (0-5) Platelet Estimate Adequate (ADEQUATE) Anisocytosis Slight Macrocytosis Slight Prothrombin Time 13.8 SEC (11.7-14.0) Prothromb Time International Ratio 1.1 (0.8-1.1) Sodium Level 135 mmol/L (136-145) Potassium Level 4.4 mmol/L (3.5-5.1) Chloride Level 101 mmol/L (98-107) Carbon Dioxide Level 25 mmol/L (21-32) Anion Gap 9 (6-14) Blood Urea Nitrogen 36 mg/dL (7-20) Creatinine 2.0 mg/dL (0.6-1.0) Estimated GFR (Cockcroft-Gault) 24.2 BUN/Creatinine Ratio 18 (6-20) Glucose Level 251 mg/dL (70-99) Calcium Level 8.6 mg/dL (8.5-10.1) Total Bilirubin 0.4 mg/dL (0.2-1.0) Aspartate Amino Transf (AST/SGOT) 21 U/L (15-37) Alanine Aminotransferase (ALT/SGPT) 17 U/L (14-59) Alkaline Phosphatase 83 U/L (46-116) Total Protein 7.1 g/dL (6.4-8.2) Albumin 3.7 g/dL (3.4-5.0) Albumin/Globulin Ratio 1.1 (1.0-1.7) Glucose (Fingerstick) 158 mg/dL (70-99) 194 mg/dL (70-99) 155 mg/dL (70-99) Medications Current Medications Morphine Sulfate (Morphine Sulfate) 4 mg 1X ONCE IV Last administered on 09/09/19at 13:25; Start 09/09/19 at 13:30; Stop 09/09/19 at 13:31; Status DC Ondansetron HCl (Zofran) 4 mg 1X ONCE IVP Last administered on 09/09/19at 13:24; Start 09/09/19 at 13:30; Stop 09/09/19 at 13:31; Status DC Hydromorphone HCl (Dilaudid) 1 mg 1X ONCE IV Last administered on 09/09/19at 13:56; Start 09/09/19 at 14:00; Stop 09/09/19 at 14:01; Status DC Diazepam (Valium) 5 mg 1X ONCE PO Last administered on 09/09/19at 13:54; Start 09/09/19 at 14:00; Stop 09/09/19 at 14:01; Status DC Ondansetron HCl (Zofran) 4 mg PRN Q4HRS PRN IV NAUSEA/VOMITING; Start 09/09/19 at 14:15 Zolpidem Tartrate (Ambien) 5 mg PRN QHS PRN PO INSOMNIA; Start 09/09/19 at 14:15; Stop 09/10/19 at 08:17; Status DC Acetaminophen (Tylenol) 650 mg PRN Q4HRS PRN PO TEMP OVER 100.4F OR MILD PAIN; Start 09/09/19 at 14:15 Docusate Sodium (Colace) 100 mg PRN BID PRN PO HARD STOOLS; Start 09/09/19 at 14:15 Albuterol Sulfate (Ventolin Neb Soln) 2.5 mg PRN Q4HRS PRN NEB SHORTNESS OF BREATH; Start 09/09/19 at 14:15 Guaifenesin (Robitussin) 200 mg PRN Q4HRS PRN PO COUGH; Start 09/09/19 at 14:15 Lorazepam (Ativan) 0.5 mg PRN Q4HRS PRN PO ANXIETY / AGITATION; Start 09/09/19 at 14:15; Stop 09/10/19 at 08:17; Status DC Hydromorphone HCl (Dilaudid) 1 mg PRN Q2HRS PRN IV SEVERE PAIN 7-10 Last administered on 09/10/19at 02:40; Start 09/09/19 at 14:15 Docusate Sodium (Colace) 100 mg PRN DAILY PRN PO HARD STOOLS; Start 09/09/19 at 14:15; Status UNV Insulin Human Lispro (HumaLOG) 0-7 UNITS TIDWMEALS SQ Last administered on 09/09/19at 17:56; Start 09/09/19 at 17:00 Dextrose (Dextrose 50%-Water Syringe) 12.5 gm PRN Q15MIN PRN IV SEE COMMENTS; Start 09/09/19 at 16:30 Insulin Glargine (Lantus Syringe) 10 unit ONCE ONCE SQ ; Start 09/09/19 at 16:30; Stop 09/09/19 at 16:31; Status DC Morphine Sulfate 5 mg/Ketorolac Tromethamine 30 mg/Ropivacaine 60 ml/Epinephrine HCl 0.5 mg/Sodium Chloride 100 ml @ 100 mls/hr 1X ONCE INT ART ; Start 09/10/19 at 08:00; Stop 09/10/19 at 08:59 Psyllium Hydrophilic Mucilloid (Metamucil Fiber Packet) 1 pkt QHS PO ; Start 09/10/19 at 21:00; Status UNV Polyethylene Glycol (miraLAX PACKET) 17 gm QHS PO ; Start 09/10/19 at 21:00; Status UNV Metoprolol Succinate (Toprol Xl) 100 mg DAILY PO ; Start 09/10/19 at 09:00; Status UNV Simvastatin (Zocor) 20 mg QHS PO ; Start 09/10/19 at 21:00; Status UNV Non-Formulary Medication (Sitagliptin Phosphate (Januvia)) 100 mg DAILY PO ; Start 09/10/19 at 09:00; Status UNV Insulin Glargine (Lantus Syringe) 10 unit QHS SQ ; Start 09/10/19 at 21:00; Status UNV Active Scripts Active Reported Lisinopril 40 Mg Tablet 1 Tab PO DAILY Simvastatin 20 Mg Tablet 1 Tab PO QHS Januvia (Sitagliptin Phosphate) 100 Mg Tablet 100 Mg PO DAILY Metformin Hcl Er (Metformin Hcl) 1,000 Mg Tab.er.24 1,000 Mg PO BID Metoprolol Succinate ( Xl ) (Metoprolol Succinate) 100 Mg Tab.er.24h 1 Tab PO DAILY Vitals/I & O Vital Sign - Last 24 Hours 09/09/19 09/09/19 09/09/19 09/09/19 12:50 13:28 14:08 14:48 Temp 98.6 98.6 Pulse 77 72 72 72 Resp 20 16 18 18 B/P (MAP) 176/79 (111) 190/83 (118) 175/80 (111) 161/76 (104) Pulse Ox 95 97 97 97 O2 Delivery Room Air Room Air 09/09/19 09/09/19 09/09/19 09/09/19 15:08 15:48 16:56 17:48 Pulse 74 70 Resp 18 18 20 B/P (MAP) 152/70 (97) 184/79 (114) Pulse Ox 90 100 100 O2 Delivery Nasal Cannula Nasal Cannula Room Air O2 Flow Rate 2.0 2.0 09/09/19 09/09/19 09/09/19 09/10/19 18:18 19:00 23:00 02:40 Temp 97.9 97.9 97.9 97.9 Pulse 66 71 Resp 18 16 18 20 B/P (MAP) 143/68 (93) 141/63 (89) Pulse Ox 95 94 94 O2 Delivery Room Air Room Air Room Air Room Air 09/10/19 09/10/19 09/10/19 03:10 03:10 07:00 Temp 98.0 98.5 98.0 98.5 Pulse 68 77 Resp 20 20 20 B/P (MAP) 146/71 (96) 154/47 (82) Pulse Ox 92 93 96 O2 Delivery Room Air Room Air Room Air Intake and Output 09/09/19 09/09/19 09/10/19 15:00 23:00 07:00 Output Total 1050 ml Balance -1050 ml DINORA CLIFTON MD Sep 10, 2019 08:29
[2019-09-10 11:21] LABS: CALCIUM 8.9 mg/dL (8.5-10.1); CREATININE 1.6 mg/dL (0.6-1.0); GFR 37.9; POTASSIUM 4.4 mmol/L (3.5-5.1)
[2019-09-10 11:24] LABS: BASO # 0.1 x10^3/uL (0.0-0.2); BASO % 1 % (0-3); EOS # 0.1 x10^3/uL (0.0-0.7); EOS % 1 % (0-3); HEMATOCRIT 28.1 % (36.0-47.0); HEMOGLOBIN 9.4 g/dL (12.0-15.5); LYMPH # 0.5 x10^3/uL (1.0-4.8); LYMPH % 5 % (24-48); MEAN CORPUSCULAR HEMOGLOBIN 35 pg (25-35); MEAN CORPUSCULAR HGB CONC 34 g/dL (31-37); MEAN CORPUSCULAR VOLUME 105 fL (79-100); MONO # 1.2 x10^3/uL (0.0-1.1); MONO % 12 % (0-9); NEUT # 8.1 x10^3/uL (1.8-7.7); NEUT % 82 % (31-73); PLATELET COUNT 162 x10^3/uL (140-400); RED BLOOD COUNT 2.67 x10^6/uL (3.50-5.40); RED CELL DISTRIBUTION WIDTH 17.6 % (11.5-14.5); WHITE BLOOD COUNT 9.9 x10^3/uL (4.0-11.0)
[2019-09-10] MEDS: LINAGLIPTIN 5 MG TABLET PO SCH (11:58)
[2019-09-10] MEDS: METOPROLOL SUCC 24HR ER 100 MG TAB.ER.24H. PO SCH (11:58)
[2019-09-10] MEDS: INSULIN LISPRO 300 UNITS/3 ML VIAL. SQ SCH ×3 (12:00→17:55)
[2019-09-10] MEDS ORDERED: traMADol 50 MG TABLET PO PRN (14:15)
[2019-09-10] MEDS ORDERED: ceFAZolin SODIUM IV Push 1 GM VIAL. IVP ONE (15:15)
--- NOTE | 2019-09-10 17:57 | EKG ---
[facility] [address] [place] [id number] Test Date: 2019-09-10 Test Time: 17:08:19 Pat Name: HELGA RAMIREZ Department: Room: 406 Gender: F Feather Washer: : 1945 Requested By: DINORA CLIFTON Order Number: [id number] Reading MD: Hai Caldera MD Measurements Intervals [place] Rate: 78 P: 68 NE: 142 QRS: 14 QRSD: 68 T: 43 QT: 342 QTc: 393 Interpretive Statements SINUS RHYTHM Electronically Signed On 10-09-2019 9:22:25 CDT by Hai Caldera MD
[2019-09-10] MEDS: POLYETHYLENE GLYCOL 3350 17 GM PACKET. PO SCH (21:00)
[2019-09-10] MEDS: PSYLLIUM HUSK (SUGAR FREE) 1 PKT PACKET PO SCH (21:00)
[2019-09-10] MEDS: SIMVASTATIN 20 MG TABLET PO SCH (21:43)
[2019-09-10] MEDS: INSULIN GLARGINE SYRINGE. SQ SCH (21:55)
[2019-09-11] VITALS (11 sets, daily range): BP systolic 137–162; BP diastolic 61–71
[2019-09-11 01:11] LABS: HEMOGLOBIN A1C 6.2 % (4.8-5.6)
--- NOTE | 2019-09-11 01:44 | NUR ---
Pt. does not want pain medication at this time. States she is upset that we moved her around earlier in the shift while trying to take extra linens from underneath her.
[2019-09-11] MEDS: HYDROmorphone 2 MG/ML VIAL IV PRN ×2 (06:19→16:23)
--- NOTE | 2019-09-11 06:40 | NUR ---
Pt. refused chlorhexidine bath from this RN. Pt. states she is still angry that we woke her up and "threw" her all over the bed. Pt. has been in same position all night and has refused all turns. Stated to nurse that she has "no compassion" and is the "worst nurse" she has ever had. Pt. did agree to some pain medication though.
[2019-09-11 07:14] LABS: BASO # 0.1 x10^3/uL (0.0-0.2); BASO % 1 % (0-3); EOS # 0.2 x10^3/uL (0.0-0.7); EOS % 1 % (0-3); HEMATOCRIT 27.3 % (36.0-47.0); HEMOGLOBIN 9.3 g/dL (12.0-15.5); LYMPH # 0.8 x10^3/uL (1.0-4.8); LYMPH % 6 % (24-48); MEAN CORPUSCULAR HEMOGLOBIN 36 pg (25-35); MEAN CORPUSCULAR HGB CONC 34 g/dL (31-37); MEAN CORPUSCULAR VOLUME 105 fL (79-100); MONO # 1.9 x10^3/uL (0.0-1.1); MONO % 14 % (0-9); NEUT # 10.3 x10^3/uL (1.8-7.7); NEUT % 78 % (31-73); PLATELET COUNT 185 x10^3/uL (140-400); RED CELL DISTRIBUTION WIDTH 17.5 % (11.5-14.5); WHITE BLOOD COUNT 13.3 x10^3/uL (4.0-11.0)
[2019-09-11] MEDS: INSULIN LISPRO 300 UNITS/3 ML VIAL. SQ SCH ×3 (07:28→16:47)
[2019-09-11] MEDS ORDERED: MORPHINE SULFATE 5 MG, KETOROLAC 30MG VIAL 30 MG, ROPIVacaine 0.5% PF 60 ML, EPINEPHrin... INT ART ONE (08:00)
[2019-09-11] MEDS: METOPROLOL SUCC 24HR ER 100 MG TAB.ER.24H. PO SCH (08:06)
--- NOTE | 2019-09-11 08:54 | NUR ---
SW following. Discussed with RN, pt from home alone, room air, COVID-19 negative. Pt having surgery today, PT/OT to work with pt after surgery. SW will continue to follow for any discharge planning needs.
[2019-09-11] MEDS: LINAGLIPTIN 5 MG TABLET PO SCH (09:00)
[2019-09-11 09:43] LABS: CALCIUM 8.6 mg/dL (8.5-10.1); CREATININE 1.6 mg/dL (0.6-1.0); GFR 37.9; POTASSIUM 4.1 mmol/L (3.5-5.1)
[2019-09-11] MEDS ORDERED: IV RINGERS,LACTATED 1000ML 1,000 ML IV SCH (09:55)
[2019-09-11] MEDS ORDERED: ceFAZolin SODIUM IV Push 1 GM VIAL. IVP ONE (09:57)
[2019-09-11] MEDS ORDERED: PROCHLORPERAZINE 10 MG/2 ML VIAL. IVP PRN (10:00)
[2019-09-11] MEDS ORDERED: LIDOCAINE 1% PF 2 ML VIAL. ID PRN (10:00)
[2019-09-11] MEDS ORDERED: ONDANSETRON PF 4 MG/2 ML VIAL. IVP PRN (10:00)
[2019-09-11] MEDS ORDERED: MORPHINE SULFATE 2 MG/ML VIAL. IVP PRN (10:00)
[2019-09-11] MEDS ORDERED: fentaNYL PF VIAL 100 MCG/2 ML VIAL IVP PRN ×2 (10:00)
[2019-09-11] MEDS ORDERED: HYDROmorphone 2 MG/ML VIAL IVP PRN (10:00)
[2019-09-11] MEDS ORDERED: INSULIN LISPRO 100 UNIT/ML 3ML VIAL for OP,RR ONLY. SQ PRN (10:00)
--- NOTE | 2019-09-11 11:09 | PDOC ---
PROGRESS NOTES Chief Complaint Chief Complaint mildly displaced comminuted intertrochanteric right hip fracture - plan for IM nail on 09/11/2019 Essential hypertension - hold GOGO for WILBERTO. Cont BB perioperatively Dyslipidemia Leukocytosis which may be reactive to the trauma Macrocytic anemia - will check B12 Hyponatremia - likely nutritional, will encourage PO Chronic kidney disease stage IV - will give IVF pre-op DM2 - with Hyperglycemia most likely reactive. Hold metformin FEN - NPO after midnight PPX - d/w patient and family low dose eliquis vs warfarin post-operatively. FULL CODE Dispo - inpatient for above History of Present Illness History of Present Illness Ms Elder is a 74 yo F w/ PMHx hypertension, dyslipidemia, DM2 who was in her usual state of health until going to her kitchen apparently she fell from her own height landing on her right side. The patient experienced excruciating pain immediately there are no deformities evident but she could not stand due to the pain. The patient denies hearing any cracking sounds she denies lightheadedness prior to her event history of palpitations no history of atrial fibrillation or irregular heartbeat, the patient denies seizure-like activity and certainly describes event that is a slip and fall. She was found to have a comminuted right femoral fracture and orthopedic weight loss consultant was informed about the findings. We have been asked to admit the patient for definitive treatment of her fracture. The patient denies abdominal pain no nausea no vomiting no diarrhea has been reported and no peripheral edema. Patient seems to be maximally optimized from a medical standpoint of view and the plan of care has been explained in detail to her and her sister who is at bedside. 09/09: Orthopedic weight loss consultant has been informed about the patient and has requested to keep the patient n.p.o. after midnight for possible surgery in the a.m. Patient seems to be medically optimized for planned surgery and she is undergoing a moderate risk surgery most likely. Hb 9.9, Cr 1.6. Afebrile. Labs stable. She has not had a BM in a day. Going to OR now Plan: NPO after midnight She is worried about cost with NOACs, considering her januvia is $30 per month and with her WILBERTO may be more appropriate to use warfarin given her renal dysfunction as well, would recommend warfarin post-op thromboprophylaxis or renally dosed 30mg lovenox if she is not ambulatory Vitals Vitals Vital Signs Date Time Temp Pulse Resp B/P (MAP) Pulse Ox O2 Delivery O2 Flow Rate FiO2 09/11/19 10:09 97.2 78 15 73/67 94 Room Air 97.2 Physical Exam General: Alert, Oriented X3 Heart: Regular rate, Other Abdomen: Soft, No tenderness Extremities: No edema, Normal pulses Skin: No rashes Labs LABS Laboratory Tests Test 09/10/19 11:42 09/10/19 16:46 09/10/19 20:37 09/11/19 07:05 Glucose (Fingerstick) 216 mg/dL (70-99) 182 mg/dL (70-99) 157 mg/dL (70-99) White Blood Count 13.3 x10^3/uL (4.0-11.0) Red Blood Count 2.60 x10^6/uL (3.50-5.40) Hemoglobin 9.3 g/dL (12.0-15.5) Hematocrit 27.3 % (36.0-47.0) Mean Corpuscular Volume 105 fL (79-100) Mean Corpuscular Hemoglobin 36 pg (25-35) Mean Corpuscular Hemoglobin Concent 34 g/dL (31-37) Red Cell Distribution Width 17.5 % (11.5-14.5) Platelet Count 185 x10^3/uL (140-400) Neutrophils (%) (Auto) 78 % (31-73) Lymphocytes (%) (Auto) 6 % (24-48) Monocytes (%) (Auto) 14 % (0-9) Eosinophils (%) (Auto) 1 % (0-3) Basophils (%) (Auto) 1 % (0-3) Neutrophils # (Auto) 10.3 x10^3/uL (1.8-7.7) Lymphocytes # (Auto) 0.8 x10^3/uL (1.0-4.8) Monocytes # (Auto) 1.9 x10^3/uL (0.0-1.1) Eosinophils # (Auto) 0.2 x10^3/uL (0.0-0.7) Basophils # (Auto) 0.1 x10^3/uL (0.0-0.2) Test 09/11/19 07:24 09/11/19 08:50 Glucose (Fingerstick) 158 mg/dL (70-99) Sodium Level 136 mmol/L (136-145) Potassium Level 4.1 mmol/L (3.5-5.1) Chloride Level 100 mmol/L (98-107) Carbon Dioxide Level 28 mmol/L (21-32) Anion Gap 8 (6-14) Blood Urea Nitrogen 30 mg/dL (7-20) Creatinine 1.6 mg/dL (0.6-1.0) Estimated GFR (Cockcroft-Gault) 37.9 Glucose Level 179 mg/dL (70-99) Calcium Level 8.6 mg/dL (8.5-10.1) Assessment and Plan Assessmemt and Plan Problems Medical Problems: (1) Hip fracture, right Status: Acute Comment Review of Relevant I have reviewed the following items tyler (where applicable) has been applied. Labs Laboratory Tests Test 09/09/19 13:00 09/09/19 17:07 09/09/19 18:00 09/09/19 20:56 White Blood Count 11.1 x10^3/uL (4.0-11.0) Red Blood Count 2.93 x10^6/uL (3.50-5.40) Hemoglobin 10.1 g/dL (12.0-15.5) Hematocrit 30.9 % (36.0-47.0) Mean Corpuscular Volume 106 fL (79-100) Mean Corpuscular Hemoglobin 34 pg (25-35) Mean Corpuscular Hemoglobin Concent 33 g/dL (31-37) Red Cell Distribution Width 17.5 % (11.5-14.5) Platelet Count 238 x10^3/uL (140-400) Neutrophils (%) (Auto) 87 % (31-73) Lymphocytes (%) (Auto) 5 % (24-48) Monocytes (%) (Auto) 6 % (0-9) Eosinophils (%) (Auto) 2 % (0-3) Basophils (%) (Auto) 1 % (0-3) Neutrophils # (Auto) 9.6 x10^3/uL (1.8-7.7) Lymphocytes # (Auto) 0.5 x10^3/uL (1.0-4.8) Monocytes # (Auto) 0.7 x10^3/uL (0.0-1.1) Eosinophils # (Auto) 0.2 x10^3/uL (0.0-0.7) Basophils # (Auto) 0.1 x10^3/uL (0.0-0.2) Segmented Neutrophils % 85 % (35-66) Lymphocytes % 11 % (24-48) Monocytes % 2 % (0-10) Eosinophils % 2 % (0-5) Platelet Estimate Adequate (ADEQUATE) Anisocytosis Slight Macrocytosis Slight Prothrombin Time 13.8 SEC (11.7-14.0) Prothromb Time International Ratio 1.1 (0.8-1.1) Sodium Level 135 mmol/L (136-145) Potassium Level 4.4 mmol/L (3.5-5.1) Chloride Level 101 mmol/L (98-107) Carbon Dioxide Level 25 mmol/L (21-32) Anion Gap 9 (6-14) Blood Urea Nitrogen 36 mg/dL (7-20) Creatinine 2.0 mg/dL (0.6-1.0) Estimated GFR (Cockcroft-Gault) 24.2 BUN/Creatinine Ratio 18 (6-20) Glucose Level 251 mg/dL (70-99) Calcium Level 8.6 mg/dL (8.5-10.1) Total Bilirubin 0.4 mg/dL (0.2-1.0) Aspartate Amino Transf (AST/SGOT) 21 U/L (15-37) Alanine Aminotransferase (ALT/SGPT) 17 U/L (14-59) Alkaline Phosphatase 83 U/L (46-116) Total Protein 7.1 g/dL (6.4-8.2) Albumin 3.7 g/dL (3.4-5.0) Albumin/Globulin Ratio 1.1 (1.0-1.7) Glucose (Fingerstick) 158 mg/dL (70-99) 194 mg/dL (70-99) Coronavirus (COVID-19)(PCR) Negative (NEGATIVE) Test 09/10/19 07:38 09/10/19 10:45 09/10/19 11:42 09/10/19 16:46 Glucose (Fingerstick) 155 mg/dL (70-99) 216 mg/dL (70-99) 182 mg/dL (70-99) White Blood Count 9.9 x10^3/uL (4.0-11.0) Red Blood Count 2.67 x10^6/uL (3.50-5.40) Hemoglobin 9.4 g/dL (12.0-15.5) Hematocrit 28.1 % (36.0-47.0) Mean Corpuscular Volume 105 fL (79-100) Mean Corpuscular Hemoglobin 35 pg (25-35) Mean Corpuscular Hemoglobin Concent 34 g/dL (31-37) Red Cell Distribution Width 17.6 % (11.5-14.5) Platelet Count 162 x10^3/uL (140-400) Neutrophils (%) (Auto) 82 % (31-73) Lymphocytes (%) (Auto) 5 % (24-48) Monocytes (%) (Auto) 12 % (0-9) Eosinophils (%) (Auto) 1 % (0-3) Basophils (%) (Auto) 1 % (0-3) Neutrophils # (Auto) 8.1 x10^3/uL (1.8-7.7) Lymphocytes # (Auto) 0.5 x10^3/uL (1.0-4.8) Monocytes # (Auto) 1.2 x10^3/uL (0.0-1.1) Eosinophils # (Auto) 0.1 x10^3/uL (0.0-0.7) Basophils # (Auto) 0.1 x10^3/uL (0.0-0.2) Sodium Level 138 mmol/L (136-145) Potassium Level 4.4 mmol/L (3.5-5.1) Chloride Level 103 mmol/L (98-107) Carbon Dioxide Level 26 mmol/L (21-32) Anion Gap 9 (6-14) Blood Urea Nitrogen 31 mg/dL (7-20) Creatinine 1.6 mg/dL (0.6-1.0) Estimated GFR (Cockcroft-Gault) 37.9 Glucose Level 221 mg/dL (70-99) Hemoglobin A1c 6.2 % (4.8-5.6) Calcium Level 8.9 mg/dL (8.5-10.1) Iron Level 27 ug/dL (50-170) Total Iron Binding Capacity 281 ug/dL (250-450) Iron Saturation 10 % (15-34) Thyroid Stimulating Hormone (TSH) 0.856 uIU/mL (0.358-3.74) Test 09/10/19 20:37 09/11/19 07:05 09/11/19 07:24 09/11/19 08:50 Glucose (Fingerstick) 157 mg/dL (70-99) 158 mg/dL (70-99) White Blood Count 13.3 x10^3/uL (4.0-11.0) Red Blood Count 2.60 x10^6/uL (3.50-5.40) Hemoglobin 9.3 g/dL (12.0-15.5) Hematocrit 27.3 % (36.0-47.0) Mean Corpuscular Volume 105 fL (79-100) Mean Corpuscular Hemoglobin 36 pg (25-35) Mean Corpuscular Hemoglobin Concent 34 g/dL (31-37) Red Cell Distribution Width 17.5 % (11.5-14.5) Platelet Count 185 x10^3/uL (140-400) Neutrophils (%) (Auto) 78 % (31-73) Lymphocytes (%) (Auto) 6 % (24-48) Monocytes (%) (Auto) 14 % (0-9) Eosinophils (%) (Auto) 1 % (0-3) Basophils (%) (Auto) 1 % (0-3) Neutrophils # (Auto) 10.3 x10^3/uL (1.8-7.7) Lymphocytes # (Auto) 0.8 x10^3/uL (1.0-4.8) Monocytes # (Auto) 1.9 x10^3/uL (0.0-1.1) Eosinophils # (Auto) 0.2 x10^3/uL (0.0-0.7) Basophils # (Auto) 0.1 x10^3/uL (0.0-0.2) Sodium Level 136 mmol/L (136-145) Potassium Level 4.1 mmol/L (3.5-5.1) Chloride Level 100 mmol/L (98-107) Carbon Dioxide Level 28 mmol/L (21-32) Anion Gap 8 (6-14) Blood Urea Nitrogen 30 mg/dL (7-20) Creatinine 1.6 mg/dL (0.6-1.0) Estimated GFR (Cockcroft-Gault) 37.9 Glucose Level 179 mg/dL (70-99) Calcium Level 8.6 mg/dL (8.5-10.1) Laboratory Tests Test 09/10/19 11:42 09/10/19 16:46 09/10/19 20:37 09/11/19 07:05 Glucose (Fingerstick) 216 mg/dL (70-99) 182 mg/dL (70-99) 157 mg/dL (70-99) White Blood Count 13.3 x10^3/uL (4.0-11.0) Red Blood Count 2.60 x10^6/uL (3.50-5.40) Hemoglobin 9.3 g/dL (12.0-15.5) Hematocrit 27.3 % (36.0-47.0) Mean Corpuscular Volume 105 fL (79-100) Mean Corpuscular Hemoglobin 36 pg (25-35) Mean Corpuscular Hemoglobin Concent 34 g/dL (31-37) Red Cell Distribution Width 17.5 % (11.5-14.5) Platelet Count 185 x10^3/uL (140-400) Neutrophils (%) (Auto) 78 % (31-73) Lymphocytes (%) (Auto) 6 % (24-48) Monocytes (%) (Auto) 14 % (0-9) Eosinophils (%) (Auto) 1 % (0-3) Basophils (%) (Auto) 1 % (0-3) Neutrophils # (Auto) 10.3 x10^3/uL (1.8-7.7) Lymphocytes # (Auto) 0.8 x10^3/uL (1.0-4.8) Monocytes # (Auto) 1.9 x10^3/uL (0.0-1.1) Eosinophils # (Auto) 0.2 x10^3/uL (0.0-0.7) Basophils # (Auto) 0.1 x10^3/uL (0.0-0.2) Test 09/11/19 07:24 09/11/19 08:50 Glucose (Fingerstick) 158 mg/dL (70-99) Sodium Level 136 mmol/L (136-145) Potassium Level 4.1 mmol/L (3.5-5.1) Chloride Level 100 mmol/L (98-107) Carbon Dioxide Level 28 mmol/L (21-32) Anion Gap 8 (6-14) Blood Urea Nitrogen 30 mg/dL (7-20) Creatinine 1.6 mg/dL (0.6-1.0) Estimated GFR (Cockcroft-Gault) 37.9 Glucose Level 179 mg/dL (70-99) Calcium Level 8.6 mg/dL (8.5-10.1) Medications Current Medications Morphine Sulfate (Morphine Sulfate) 4 mg 1X ONCE IV Last administered on 09/09/19at 13:25; Start 09/09/19 at 13:30; Stop 09/09/19 at 13:31; Status DC Ondansetron HCl (Zofran) 4 mg 1X ONCE IVP Last administered on 09/09/19at 13:2 4; Start 09/09/19 at 13:30; Stop 09/09/19 at 13:31; Status DC Hydromorphone HCl (Dilaudid) 1 mg 1X ONCE IV Last administered on 09/09/19at 13:56; Start 09/09/19 at 14:00; Stop 09/09/19 at 14:01; Status DC Diazepam (Valium) 5 mg 1X ONCE PO Last administered on 09/09/19at 13:54; Start 09/09/19 at 14:00; Stop 09/09/19 at 14:01; Status DC Ondansetron HCl (Zofran) 4 mg PRN Q4HRS PRN IV NAUSEA/VOMITING; Start 09/09/19 at 14:15 Zolpidem Tartrate (Ambien) 5 mg PRN QHS PRN PO INSOMNIA; Start 09/09/19 at 14:15; Stop 09/10/19 at 08:17; Status DC Acetaminophen (Tylenol) 650 mg PRN Q4HRS PRN PO TEMP OVER 100.4F OR MILD PAIN; Start 09/09/19 at 14:15 Docusate Sodium (Colace) 100 mg PRN BID PRN PO HARD STOOLS; Start 09/09/19 at 14:15 Albuterol Sulfate (Ventolin Neb Soln) 2.5 mg PRN Q4HRS PRN NEB SHORTNESS OF BREATH; Start 09/09/19 at 14:15 Guaifenesin (Robitussin) 200 mg PRN Q4HRS PRN PO COUGH; Start 09/09/19 at 14:15 Lorazepam (Ativan) 0.5 mg PRN Q4HRS PRN PO ANXIETY / AGITATION; Start 09/09/19 at 14:15; Stop 09/10/19 at 08:17; Status DC Hydromorphone HCl (Dilaudid) 1 mg PRN Q2HRS PRN IV SEVERE PAIN 7-10 Last administered on 09/11/19at 06:19; Start 09/09/19 at 14:15 Docusate Sodium (Colace) 100 mg PRN DAILY PRN PO HARD STOOLS; Start 09/09/19 at 14:15; Status UNV Insulin Human Lispro (HumaLOG) 0-7 UNITS TIDWMEALS SQ Last administered on 09/10/19at 17:55; Start 09/09/19 at 17:00 Dextrose (Dextrose 50%-Water Syringe) 12.5 gm PRN Q15MIN PRN IV SEE COMMENTS; Start 09/09/19 at 16:30 Insulin Glargine (Lantus Syringe) 10 unit ONCE ONCE SQ ; Start 09/09/19 at 16:30; Stop 09/09/19 at 16:31; Status DC Morphine Sulfate 5 mg/Ketorolac Tromethamine 30 mg/Ropivacaine 60 ml/Epinephrine HCl 0.5 mg/Sodium Chloride 100 ml @ 100 mls/hr 1X ONCE INT ART ; Start 09/10/19 at 08:00; Stop 09/10/19 at 08:59; Status DC Psyllium Hydrophilic Mucilloid (Metamucil Fiber Packet) 1 pkt QHS PO ; Start 09/10/19 at 21:00 Polyethylene Glycol (miraLAX PACKET) 17 gm QHS PO ; Start 09/10/19 at 21:00 Metoprolol Succinate (Toprol Xl) 100 mg DAILY PO Last administered on 09/11/19at 08:06; Start 09/10/19 at 09:00 Simvastatin (Zocor) 20 mg QHS PO Last administered on 09/10/19at 21:43; Start 09/10/19 at 21:00 Linagliptin (Tradjenta) 5 mg DAILY PO Last administered on 09/10/19at 11:58; Start 09/10/19 at 09:00 Insulin Glargine (Lantus Syringe) 10 unit QHS SQ Last administered on 09/10/19at 21:55; Start 09/10/19 at 21:00 Tramadol HCl (Ultram) 50 mg PRN Q6HRS PRN PO MILD TO MODERATE PAIN Last administered on 09/10/19at 21:43; Start 09/10/19 at 14:15 Cefazolin Sodium (Ancef) 1 gm 1X ONCE IVP ; Start 09/10/19 at 15:15; Stop 09/10/19 at 15:16; Status DC Morphine Sulfate 5 mg/Ketorolac Tromethamine 30 mg/Ropivacaine 60 ml/Epinephrine HCl 0.5 mg/Sodium Chloride 100 ml @ 100 mls/hr 1X ONCE INT ART ; Start 09/10 at 08:00; Stop 09/11/19 at 08:59; Status DC Insulin Human Lispro (HumaLOG VIAL for OP,RR ONLY) 0-10 units PRN Q1HR PRN SQ PER PROTOCOL; Start 09/11/19 at 10:00; Stop 09/12/19 at 09:59 Ondansetron HCl (Zofran) 4 mg PRN Q6HRS PRN IVP NAUSEA/VOMITING; Start 09/11/19 at 10:00; Stop 09/11/19 at 20:00 Fentanyl Citrate (Fentanyl 2ml Vial) 25 mcg PRN Q5MIN PRN IVP MILD PAIN 1-3; S tart 09/11/19 at 10:00; Stop 09/11/19 at 20:00 Fentanyl Citrate (Fentanyl 2ml Vial) 50 mcg PRN Q5MIN PRN IVP MODERATE TO SEVERE PAIN; Start 09/11/19 at 10:00; Stop 09/11/19 at 20:00 Morphine Sulfate (Morphine Sulfate) 1 mg PRN Q10MIN PRN IVP SEVERE PAIN 7-10; Start 09/11/19 at 10:00; Stop 09/11/19 at 20:00 Ringer's Solution 1,000 ml @ 30 mls/hr Q24H IV Last administered on 09/11/19at 10:13; Start 09/11/19 at 09:55; Stop 09/11/19 at 21:54 Lidocaine HCl (Xylocaine-Mpf 1% 2ml Vial) 2 ml 1X PRN PRN ID IV START; Start 09/11/19 at 10:00; Stop 09/11/19 at 20:00 Hydromorphone HCl (Dilaudid) 0.5 mg PRN Q10MIN PRN IVP SEV PAIN, Second choice; Start 09/11/19 at 10:00; Stop 09/11/19 at 20:00 Prochlorperazine Edisylate (Compazine) 5 mg PACU PRN PRN IVP NAUSEA, MRX1; Start 09/11/19 at 10:00; Stop 09/11/19 at 20:00 Cefazolin Sodium (Ancef) 1 gm STK-MED ONCE IVP ; Start 09/11/19 at 09:57; Stop 09/11/19 at 09:57; Status DC Cefazolin Sodium (Ancef) 1 gm Q6H IVP ; Start 09/11/19 at 16:00; Stop 09/12/19 at 04:01 Enoxaparin Sodium (Lovenox 30mg Syringe) 30 mg Q24H SQ ; Start 09/11/19 at 21:00 Acetaminophen/ Hydrocodone Bitart (Lortab 5/325) 1 tab PRN Q4HRS PRN PO SEVERE PAIN; Start 09/11/19 at 10:30 Active Scripts Active Reported Lisinopril 40 Mg Tablet 1 Tab PO DAILY Simvastatin 20 Mg Tablet 1 Tab PO QHS Januvia (Sitagliptin Phosphate) 100 Mg Tablet 100 Mg PO DAILY Metformin Hcl Er (Metformin Hcl) 1,000 Mg Tab.er.24 1,000 Mg PO BID Metoprolol Succinate ( Xl ) (Metoprolol Succinate) 100 Mg Tab.er.24h 1 Tab PO DAILY Vitals/I & O Vital Sign - Last 24 Hours 09/10/19 09/10/19 09/10/19 09/10/19 11:58 11:59 15:32 19:00 Temp 97.6 98.7 98.2 97.6 98.7 98.2 Pulse 77 81 72 75 Resp 20 20 18 B/P (MAP) 154/47 149/61 (90) 141/65 (90) 161/57 (91) Pulse Ox 98 95 92 O2 Delivery Room Air Room Air Room Air 09/10/19 09/10/19 09/10/19 09/10/19 20:00 21:41 21:43 22:11 O2 Delivery Room Air Room Air Room Air Room Air 09/10/19 09/10/19 09/11/19 09/11/19 22:43 23:03 03:03 06:19 Temp 98.4 97.7 98.4 97.7 Pulse 73 76 Resp 18 18 B/P (MAP) 144/68 (93) 156/65 (95) Pulse Ox 94 92 O2 Delivery Room Air Room Air Room Air Room Air 09/11/19 09/11/19 09/11/19 09/11/19 07:00 07:08 08:00 08:06 Temp 98.5 98.5 Pulse 81 81 Resp 18 B/P (MAP) 138/67 (90) 138/67 Pulse Ox 94 O2 Delivery Room Air Room Air Room Air 09/11/19 10:09 Temp 97.2 97.2 Pulse 78 Resp 15 B/P (MAP) 73/67 Pulse Ox 94 O2 Delivery Room Air Intake and Output 09/10/19 09/10/19 09/11/19 15:00 23:00 07:00 Output Total 1200 ml 400 ml Balance -1200 ml -400 ml DINORA CLIFTON MD Sep 11, 2019 11:09
[2019-09-11] MEDS ORDERED: fentaNYL PF VIAL 100 MCG/2 ML VIAL ONE ×2 (11:24→13:05)
--- NOTE | 2019-09-11 11:29 | PDOC4 ---
Operative Note Operative Note Date of procedure: 09/11/2019 Surgeon: Sheldon Head Cloth Framer: Hans Mccormick, certified solid waste facility operator Preoperative diagnosis: Comminuted closed right intertrochanteric hip fracture Postoperative diagnosis: Same Procedure performed: Closed reduction intramedullary nailing right intertrochanteric hip fracture Anesthesia: General Findings: Acute fracture Blood loss: 125 mL Complications: None Components inserted: [employer] 10 x 18InterTAN nail with a 100 mm lag screw and 30 mm compression screw, 32.5 mm distal interlocking screw Reason for procedure: Patient is a very pleasant elderly female who is normally a community ambulator and had a ground-level fall while at home. I was asked to see in consultation after she was admitted due to pain and inability to ambulate and x-rays revealed the above injury. Her and I had a discussion of the risks, benefits, and alternatives and as per hospital policy, once her COVID test was negative, we proceeded with surgery. Description of procedure: Patient was greeted in the preoperative holding area by myself or the correct extremity was verified and marked. She was taken to the operative suite and antibiotics were started as she was brought back. Once in the operating, she was transferred on the spine to the fracture table and secured to the bed with all pressure points padded after she had successful induction of a general anesthetic on her hospital bed. Padded perineal post was used, right leg in a traction ski boot, left leg in a well leg goel. We then proceeded to perform the closed reduction maneuver and after achieving adequate reduction confirmed under biplanar fluoroscopy, the right hip region and leg were prepped and draped in the usual sterile fashion including [place] at the periphery. I then palpated marked surface anatomy and made an incision at the intersection point between a line drawn from her greater trochanter proximally and ASIS posteriorly. Skin was incised with a scalpel and I dissected subcutaneous tissue with electrocautery, cauterizing bleeders as they were encountered. Fascia was split. I bluntly dissected down to the tip of the greater trochanter and used biplanar fluoroscopy to advance a guidepin in an appropriate starting position down past the lesser trochanter. I then used my entry reamer to gain entry to the proximal femur. I then impacted my nail into position using fluoroscopy as a guide. I then pressed the lateral trocar again skin, and incised skin in accordance with this and dissected with electrocautery down to fascia which I then split in line with the skin incision. I then seated the lateral trocar and used biplanar fluoroscopy to guide my pin to as close to a center center position as I was able to achieve. After this, I measured then drilled my lateral cortex and impacted my derotation bar. I then drilled and reamed for my lag screw and placed this followed by my compression screw. After this, I removed this trocar group and placed my distal locking trocar again skin and incised skin in accordance with this. I then bluntly spread down to bone and seated my trocar. I then drilled and placed my distal interlocking screw. I then took my final images and removed my aiming arm. I was satisfied with the hardware position and fracture alignment. The incisions were thoroughly irrigated. I injected my periarticular mixture into the erwin-incisional soft tissues. Prior to this, the wounds been thoroughly irrigated out. We then closed deep layers with simple interrupted 0 Vicryl followed by inverted interrupted 2-0 Vicryl for subcutaneous tissue and can for skin. The leg we re cleansed and dried and a sterile bulky dressing was applied. Traction had been let off after placement of distal interlocking screw. At this point, the patient was awakened anesthesia and we laid her gently supine on the fracture table and transferred gently supine to the hospital bed. She was taken to the PACU in stable and expanded condition. Postoperative plan is to readmit the patient to the floor under the care of the hospitalist. She received DVT and antibiotic prophylaxis. I will follow along. SHELDON HEAD II, MD Sep 11, 2019 11:28
[2019-09-11] MEDS ORDERED: PHENYLEPHRINE in 0.9% NACL PF 1 MG/10 ML SYRINGE. IV ONE (11:57)
[2019-09-11] MEDS ORDERED: LIDOCAINE 2% PF 5 ML VIAL. ONE (11:58)
[2019-09-11] MEDS ORDERED: PROPOFOL 10 MG/ML (20ML) VIAL. IV ONE (11:58)
[2019-09-11] MEDS ORDERED: DEXAMETHASONE SOD PHOS 4 MG/ML VIAL ONE (12:21)
[2019-09-11] MEDS ORDERED: ONDANSETRON PF 4 MG/2 ML VIAL. ONE (12:21)
--- NOTE | 2019-09-11 12:49 | RAD ---
EXAM: Left femur, 8 views. HISTORY: Fracture fixation. COMPARISON: 09/09/2019. FINDINGS: 8 fluoroscopic images of the right femur are obtained. There is internal fixation of a comminuted right femoral intertrochanteric fracture. There is improved alignment compared to the prior study. The total fluoroscopy time is not included with the images. IMPRESSION: Fluoroscopic imaging for surgical guidance during right femoral intertrochanteric fracture fixation. Electronically signed by: Aileen Arthur MD (09/11/2019 12:46 PM) [id number]
[2019-09-11] MEDS ORDERED: hydrALAZINE 20 MG/ML VIAL. ONE (13:14)
[2019-09-11] MEDS ORDERED: hydrALAZINE 20 MG/ML VIAL. IVP ONE (13:30)
[2019-09-11] MEDS: ceFAZolin SODIUM IV Push 1 GM VIAL. IVP SCH ×2 (16:13→21:26)
[2019-09-11] MEDS: PSYLLIUM HUSK (SUGAR FREE) 1 PKT PACKET PO SCH (21:23)
[2019-09-11] MEDS: POLYETHYLENE GLYCOL 3350 17 GM PACKET. PO SCH (21:23)
[2019-09-11] MEDS: ENOXAPARIN 30 MG/0.3 ML SYRINGE. SQ SCH (21:25)
[2019-09-11] MEDS: SIMVASTATIN 20 MG TABLET PO SCH (21:25)
[2019-09-11] MEDS: INSULIN GLARGINE SYRINGE. SQ SCH (21:35)
[2019-09-12 03:00] VITALS: BP 149/56
[2019-09-12] MEDS: ceFAZolin SODIUM IV Push 1 GM VIAL. IVP SCH (03:44)
[2019-09-12 05:33] LABS: BASO % 0 % (0-3); EOS % 0 % (0-3); HEMATOCRIT 24.5 % (36.0-47.0); HEMOGLOBIN 8.2 g/dL (12.0-15.5); LYMPH # 0.3 x10^3/uL (1.0-4.8); LYMPH % 3 % (24-48); MEAN CORPUSCULAR HEMOGLOBIN 35 pg (25-35); MEAN CORPUSCULAR HGB CONC 34 g/dL (31-37); MEAN CORPUSCULAR VOLUME 104 fL (79-100); MONO # 1.4 x10^3/uL (0.0-1.1); MONO % 13 % (0-9); NEUT # 9.3 x10^3/uL (1.8-7.7); NEUT % 84 % (31-73); PLATELET COUNT 140 x10^3/uL (140-400); RED BLOOD COUNT 2.37 x10^6/uL (3.50-5.40); RED CELL DISTRIBUTION WIDTH 17.5 % (11.5-14.5); WHITE BLOOD COUNT 11.1 x10^3/uL (4.0-11.0)
[2019-09-12 05:58] LABS: CALCIUM 8.8 mg/dL (8.5-10.1); CREATININE 1.6 mg/dL (0.6-1.0); GFR 37.9; POTASSIUM 4.7 mmol/L (3.5-5.1)
[2019-09-12 06:52] VITALS: BP 129/53
[2019-09-12] MEDS: INSULIN LISPRO 300 UNITS/3 ML VIAL. SQ SCH ×3 (07:12→16:22)
[2019-09-12] MEDS: LINAGLIPTIN 5 MG TABLET PO SCH (07:32)
[2019-09-12] MEDS: HYDROcodone/APAP 5/325MG 1 TAB TABLET PO PRN ×3 (07:33→19:41)
[2019-09-12] MEDS: METOPROLOL SUCC 24HR ER 100 MG TAB.ER.24H. PO SCH (07:33)
--- NOTE | 2019-09-12 08:19 | PDOC ---
ORTHO PROGRESS NOTES Subjective Her hip feels a little better since surgery, no new complaints otherwise. Vitals Vital Signs Date Time Temp Pulse Resp B/P (MAP) Pulse Ox O2 Delivery O2 Flow Rate FiO2 09/12/19 07:54 Room Air 09/12/19 07:33 16 09/12/19 07:33 72 129/53 09/12/19 06:52 99.1 96 99.1 09/11/19 12:44 10 Labs Laboratory Tests Test 09/10/19 10:45 09/10/19 11:42 09/10/19 16:46 09/10/19 20:37 White Blood Count 9.9 x10^3/uL (4.0-11.0) Red Blood Count 2.67 x10^6/uL (3.50-5.40) Hemoglobin 9.4 g/dL (12.0-15.5) Hematocrit 28.1 % (36.0-47.0) Mean Corpuscular Volume 105 fL (79-100) Mean Corpuscular Hemoglobin 35 pg (25-35) Mean Corpuscular Hemoglobin Concent 34 g/dL (31-37) Red Cell Distribution Width 17.6 % (11.5-14.5) Platelet Count 162 x10^3/uL (140-400) Neutrophils (%) (Auto) 82 % (31-73) Lymphocytes (%) (Auto) 5 % (24-48) Monocytes (%) (Auto) 12 % (0-9) Eosinophils (%) (Auto) 1 % (0-3) Basophils (%) (Auto) 1 % (0-3) Neutrophils # (Auto) 8.1 x10^3/uL (1.8-7.7) Lymphocytes # (Auto) 0.5 x10^3/uL (1.0-4.8) Monocytes # (Auto) 1.2 x10^3/uL (0.0-1.1) Eosinophils # (Auto) 0.1 x10^3/uL (0.0-0.7) Basophils # (Auto) 0.1 x10^3/uL (0.0-0.2) Sodium Level 138 mmol/L (136-145) Potassium Level 4.4 mmol/L (3.5-5.1) Chloride Level 103 mmol/L (98-107) Carbon Dioxide Level 26 mmol/L (21-32) Anion Gap 9 (6-14) Blood Urea Nitrogen 31 mg/dL (7-20) Creatinine 1.6 mg/dL (0.6-1.0) Estimated GFR (Cockcroft-Gault) 37.9 Glucose Level 221 mg/dL (70-99) Hemoglobin A1c 6.2 % (4.8-5.6) Calcium Level 8.9 mg/dL (8.5-10.1) Iron Level 27 ug/dL (50-170) Total Iron Binding Capacity 281 ug/dL (250-450) Iron Saturation 10 % (15-34) Vitamin B12 Level 304 pg/mL (247-911) 25-Hydroxy Vitamin D Total 36.7 ng/mL (30-100) Thyroid Stimulating Hormone (TSH) 0.856 uIU/mL (0.358-3.74) Glucose (Fingerstick) 216 mg/dL (70-99) 182 mg/dL (70-99) 157 mg/dL (70-99) Test 09/11/19 07:05 09/11/19 07:24 09/11/19 08:50 09/11/19 12:58 White Blood Count 13.3 x10^3/uL (4.0-11.0) Red Blood Count 2.60 x10^6/uL (3.50-5.40) Hemoglobin 9.3 g/dL (12.0-15.5) Hematocrit 27.3 % (36.0-47.0) Mean Corpuscular Volume 105 fL (79-100) Mean Corpuscular Hemoglobin 36 pg (25-35) Mean Corpuscular Hemoglobin Concent 34 g/dL (31-37) Red Cell Distribution Width 17.5 % (11.5-14.5) Platelet Count 185 x10^3/uL (140-400) Neutrophils (%) (Auto) 78 % (31-73) Lymphocytes (%) (Auto) 6 % (24-48) Monocytes (%) (Auto) 14 % (0-9) Eosinophils (%) (Auto) 1 % (0-3) Basophils (%) (Auto) 1 % (0-3) Neutrophils # (Auto) 10.3 x10^3/uL (1.8-7.7) Lymphocytes # (Auto) 0.8 x10^3/uL (1.0-4.8) Monocytes # (Auto) 1.9 x10^3/uL (0.0-1.1) Eosinophils # (Auto) 0.2 x10^3/uL (0.0-0.7) Basophils # (Auto) 0.1 x10^3/uL (0.0-0.2) Glucose (Fingerstick) 158 mg/dL (70-99) 171 mg/dL (70-99) Sodium Level 136 mmol/L (136-145) Potassium Level 4.1 mmol/L (3.5-5.1) Chloride Level 100 mmol/L (98-107) Carbon Dioxide Level 28 mmol/L (21-32) Anion Gap 8 (6-14) Blood Urea Nitrogen 30 mg/dL (7-20) Creatinine 1.6 mg/dL (0.6-1.0) Estimated GFR (Cockcroft-Gault) 37.9 Glucose Level 179 mg/dL (70-99) Calcium Level 8.6 mg/dL (8.5-10.1) Test 09/11/19 16:37 09/11/19 20:24 09/12/19 03:48 09/12/19 06:59 Glucose (Fingerstick) 181 mg/dL (70-99) 217 mg/dL (70-99) 123 mg/dL (70-99) White Blood Count 11.1 x10^3/uL (4.0-11.0) Red Blood Count 2.37 x10^6/uL (3.50-5.40) Hemoglobin 8.2 g/dL (12.0-15.5) Hematocrit 24.5 % (36.0-47.0) Mean Corpuscular Volume 104 fL (79-100) Mean Corpuscular Hemoglobin 35 pg (25-35) Mean Corpuscular Hemoglobin Concent 34 g/dL (31-37) Red Cell Distribution Width 17.5 % (11.5-14.5) Platelet Count 140 x10^3/uL (140-400) Neutrophils (%) (Auto) 84 % (31-73) Lymphocytes (%) (Auto) 3 % (24-48) Monocytes (%) (Auto) 13 % (0-9) Eosinophils (%) (Auto) 0 % (0-3) Basophils (%) (Auto) 0 % (0-3) Neutrophils # (Auto) 9.3 x10^3/uL (1.8-7.7) Lymphocytes # (Auto) 0.3 x10^3/uL (1.0-4.8) Monocytes # (Auto) 1.4 x10^3/uL (0.0-1.1) Eosinophils # (Auto) 0.0 x10^3/uL (0.0-0.7) Basophils # (Auto) 0.0 x10^3/uL (0.0-0.2) Sodium Level 137 mmol/L (136-145) Potassium Level 4.7 mmol/L (3.5-5.1) Chloride Level 100 mmol/L (98-107) Carbon Dioxide Level 29 mmol/L (21-32) Anion Gap 8 (6-14) Blood Urea Nitrogen 31 mg/dL (7-20) Creatinine 1.6 mg/dL (0.6-1.0) Estimated GFR (Cockcroft-Gault) 37.9 Glucose Level 165 mg/dL (70-99) Calcium Level 8.8 mg/dL (8.5-10.1) Laboratory Tests Test 09/11/19 08:50 09/11/19 12:58 09/11/19 16:37 09/11/19 20:24 Sodium Level 136 mmol/L (136-145) Potassium Level 4.1 mmol/L (3.5-5.1) Chloride Level 100 mmol/L (98-107) Carbon Dioxide Level 28 mmol/L (21-32) Anion Gap 8 (6-14) Blood Urea Nitrogen 30 mg/dL (7-20) Creatinine 1.6 mg/dL (0.6-1.0) Estimated GFR (Cockcroft-Gault) 37.9 Glucose Level 179 mg/dL (70-99) Calcium Level 8.6 mg/dL (8.5-10.1) Glucose (Fingerstick) 171 mg/dL (70-99) 181 mg/dL (70-99) 217 mg/dL (70-99) Test 09/12/19 03:48 09/12/19 06:59 White Blood Count 11.1 x10^3/uL (4.0-11.0) Red Blood Count 2.37 x10^6/uL (3.50-5.40) Hemoglobin 8.2 g/dL (12.0-15.5) Hematocrit 24.5 % (36.0-47.0) Mean Corpuscular Volume 104 fL (79-100) Mean Corpuscular Hemoglobin 35 pg (25-35) Mean Corpuscular Hemoglobin Concent 34 g/dL (31-37) Red Cell Distribution Width 17.5 % (11.5-14.5) Platelet Count 140 x10^3/uL (140-400) Neutrophils (%) (Auto) 84 % (31-73) Lymphocytes (%) (Auto) 3 % (24-48) Monocytes (%) (Auto) 13 % (0-9) Eosinophils (%) (Auto) 0 % (0-3) Basophils (%) (Auto) 0 % (0-3) Neutrophils # (Auto) 9.3 x10^3/uL (1.8-7.7) Lymphocytes # (Auto) 0.3 x10^3/uL (1.0-4.8) Monocytes # (Auto) 1.4 x10^3/uL (0.0-1.1) Eosinophils # (Auto) 0.0 x10^3/uL (0.0-0.7) Basophils # (Auto) 0.0 x10^3/uL (0.0-0.2) Sodium Level 137 mmol/L (136-145) Potassium Level 4.7 mmol/L (3.5-5.1) Chloride Level 100 mmol/L (98-107) Carbon Dioxide Level 29 mmol/L (21-32) Anion Gap 8 (6-14) Blood Urea Nitrogen 31 mg/dL (7-20) Creatinine 1.6 mg/dL (0.6-1.0) Estimated GFR (Cockcroft-Gault) 37.9 Glucose Level 165 mg/dL (70-99) Calcium Level 8.8 mg/dL (8.5-10.1) Glucose (Fingerstick) 123 mg/dL (70-99) Notes She is awake and alert in bed. Her dressing is intact and clean. Normal motor and sensation are present in her right leg Assessment and Plan PT and OT today, she may need placement. She can weight-bear as tolerated with a walker. She will finish her antibiotic prophylaxis today. We will start DVT prophylaxis as well. LESLYE HEAD II, MD Sep 12, 2019 08:19
--- NOTE | 2019-09-12 09:32 | NUR ---
ABIMAEL following. Discussed with RN, pt to work with PT/OT today. ABIMAEL will continue to follow. Addendum: 09/12/19 at 1528 by HAI VARGHESE PT/OT recommending acute rehab. ABIMAEL met with pt and pt's brother at bedside (no isolation precautions at the time). Pt somewhat agreeable to going to a facility, due to COVID-19. ABIMAEL explained difference between SNU, acute rehab and home health. ABIMAEL provided information RE [facility] acute rehab, [facility] and [facility]. Pt agreeable to beginning the referral process, would like referral to [facility] as it is closer and she thinks a family member or friend has been there. Pt wants her daughter, Isabel to potentially check out the facility. ABIMAEL faxed referral to [facility], awaiting acceptance decision. ABIMAEL will continue to follow.
[2019-09-12] MEDS: HYDROmorphone 2 MG/ML VIAL IV PRN (10:26)
[2019-09-12 10:49] VITALS: BP 131/58
--- NOTE | 2019-09-12 12:14 | PDOC ---
[facility] [facility] PROGRESS NOTE Chief Complaint Chief Complaint Postop day 1 right hip ORIF/nailing mildly displaced comminuted intertrochanteric right hip fracture Essential hypertension Dyslipidemia Leukocytosis which may be reactive to the trauma Macrocytic anemi Hyponatremia - likely nutritiona DM2 - with Hyperglycemia most likely reactive History of Present Illness History of Present Illness 09-12-2019 Patient seen and examined Discussed with RN Chart reviewed Discussed with her daughter and her friend Ms Elder is a 74 yo F w/ PMHx hypertension, dyslipidemia, DM2 who was in her usual state of health until going to her kitchen apparently she fell from her own height landing on her right side. The patient experienced excruciating pain immediately there are no deformities evident but she could not stand due to the pain. The patient denies hearing any cracking sounds she denies lightheadedness prior to her event history of palpitations no history of atrial fibrillation or irregular heartbeat, the patient denies seizure-like activity and certainly describes event that is a slip and fall. She was found to have a comminuted right femoral fracture and orthopedic configuration management consultant was informed about the findings. We have been asked to admit the patient for definitive treatment of her fracture. The patient denies abdominal pain no nausea no vomiting no diarrhea has been reported and no peripheral edema. Patient seems to be maximally optimized from a medical standpoint of view and the plan of care has been explained in detail to her and her sister who is at bedside. 09/09: Orthopedic configuration management consultant has been informed about the patient and has requested to keep the patient n.p.o. after midnight for possible surgery in the a.m. Patient seems to be medically optimized for planned surgery and she is undergoing a moderate risk surgery most likely. Hb 9.9, Cr 1.6. Afebrile. Labs stable. She has not had a BM in a day. Going to OR now Plan: NPO after midnight She is worried about cost with NOACs, considering her januvia is $30 per month and with her WILBERTO may be more appropriate to use warfarin given her renal dysfunction as well, would recommend warfarin post-op thromboprophylaxis or renally dosed 30mg lovenox if she is not ambulatory Vitals/I&O Vitals/I&O: Vital Signs Date Time Temp Pulse Resp B/P (MAP) Pulse Ox O2 Delivery O2 Flow Rate FiO2 09/12/19 11:37 16 Room Air 6/30/20 10:49 89 131/58 (82) 95 09/12/19 06:52 99.1 99.1 09/11/19 12:44 10 I & O 09/11/19 09/11/19 09/12/19 15:00 23:00 07:00 Intake Total 400 ml 260 ml 120 ml Output Total 250 ml Balance 150 ml 260 ml 120 ml Physical Exam General: Alert, Oriented X3, Other (Anxious does not really want to go to senior care she is scared of COVID-19) Heart: Regular rate, Other Lungs: Clear Abdomen: Soft, No tenderness Extremities: No edema, Normal pulses, Other (Right hip tender with clean dry intact dressing) Skin: No rashes Labs Labs: Laboratory Tests Test 09/11/19 12:58 09/11/19 16:37 09/11/19 20:24 09/12/19 03:48 Glucose (Fingerstick) 171 mg/dL (70-99) 181 mg/dL (70-99) 217 mg/dL (70-99) White Blood Count 11.1 x10^3/uL (4.0-11.0) Red Blood Count 2.37 x10^6/uL (3.50-5.40) Hemoglobin 8.2 g/dL (12.0-15.5) Hematocrit 24.5 % (36.0-47.0) Mean Corpuscular Volume 104 fL (79-100) Mean Corpuscular Hemoglobin 35 pg (25-35) Mean Corpuscular Hemoglobin Concent 34 g/dL (31-37) Red Cell Distribution Width 17.5 % (11.5-14.5) Platelet Count 140 x10^3/uL (140-400) Neutrophils (%) (Auto) 84 % (31-73) Lymphocytes (%) (Auto) 3 % (24-48) Monocytes (%) (Auto) 13 % (0-9) Eosinophils (%) (Auto) 0 % (0-3) Basophils (%) (Auto) 0 % (0-3) Neutrophils # (Auto) 9.3 x10^3/uL (1.8-7.7) Lymphocytes # (Auto) 0.3 x10^3/uL (1.0-4.8) Monocytes # (Auto) 1.4 x10^3/uL (0.0-1.1) Eosinophils # (Auto) 0.0 x10^3/uL (0.0-0.7) Basophils # (Auto) 0.0 x10^3/uL (0.0-0.2) Sodium Level 137 mmol/L (136-145) Potassium Level 4.7 mmol/L (3.5-5.1) Chloride Level 100 mmol/L (98-107) Carbon Dioxide Level 29 mmol/L (21-32) Anion Gap 8 (6-14) Blood Urea Nitrogen 31 mg/dL (7-20) Creatinine 1.6 mg/dL (0.6-1.0) Estimated GFR (Cockcroft-Gault) 37.9 Glucose Level 165 mg/dL (70-99) Calcium Level 8.8 mg/dL (8.5-10.1) Test 09/12/19 06:59 09/12/19 10:57 Glucose (Fingerstick) 123 mg/dL (70-99) 206 mg/dL (70-99) Assessment and Plan Assessmemt and Plan Problems Medical Problems: (1) Hip fracture, right Status: Acute Postop day 1 right hip ORIF/nailing mildly displaced comminuted intertrochanteric right hip fracture Essential hypertension Dyslipidemia Leukocytosis which may be reactive to the trauma Macrocytic anemi Hyponatremia - likely nutritiona DM2 - with Hyperglycemia most likely reactive Plan Wound care PT OT Pain meds group home evaluation DVT prophylaxis Home meds Appreciate subspecialist Comment Review of Relevant I have reviewed the following items tyler (where applicable) has been applied. Medications: Current Medications Medications (Trade) Dose Ordered Sig/Liam Route PRN Reason Start Time Stop Time Status Last Admin Dose Admin Cefazolin Sodium (Ancef) 1 gm Q6H IVP 09/11/19 16:00 09/12/19 04:01 DC 09/12/19 03:44 Enoxaparin Sodium (Lovenox 30mg Syringe) 30 mg Q24H SQ 09/11/19 21:00 09/11/19 21:25 Hydralazine HCl (Apresoline Inj) 10 mg 1X ONCE IVP 09/11/19 13:30 09/11/19 13:31 DC 09/11/19 13:15 Justicifation of Admission Dx: Justifications for Admission: Justification of Admission Dx: Yes Fracture: Fracture LORENZA OWEN III DO Sep 12, 2019 12:14
[2019-09-12 14:21] VITALS: BP 124/55
[2019-09-12 19:00] VITALS: BP 119/47
[2019-09-12] MEDS: POLYETHYLENE GLYCOL 3350 17 GM PACKET. PO SCH (20:45)
[2019-09-12] MEDS: ENOXAPARIN 30 MG/0.3 ML SYRINGE. SQ SCH (20:45)
[2019-09-12] MEDS: SIMVASTATIN 20 MG TABLET PO SCH (20:45)
[2019-09-12] MEDS: PSYLLIUM HUSK (SUGAR FREE) 1 PKT PACKET PO SCH (20:46)
[2019-09-12] MEDS: INSULIN GLARGINE SYRINGE. SQ SCH (20:50)
[2019-09-12 23:00] VITALS: BP 117/50
[2019-09-13 03:00] VITALS: BP 129/57
[2019-09-13] MEDS: HYDROmorphone 2 MG/ML VIAL IV PRN (03:27)
[2019-09-13 06:50] VITALS: BP 115/56
[2019-09-13] MEDS: INSULIN LISPRO 300 UNITS/3 ML VIAL. SQ SCH ×2 (07:00→12:41)
[2019-09-13] MEDS: HYDROcodone/APAP 5/325MG 1 TAB TABLET PO PRN ×2 (07:58→12:38)
[2019-09-13] MEDS: METOPROLOL SUCC 24HR ER 100 MG TAB.ER.24H. PO SCH (07:58)
[2019-09-13] MEDS: LINAGLIPTIN 5 MG TABLET PO SCH (07:58)
--- NOTE | 2019-09-13 08:37 | NUR ---
ABIMAEL following. Discussed with RN, awaiting acceptance decision from [facility]. Per RN, pt likely can discharge today once accepted at [facility]. ABIMAEL will continue to follow. Addendum: 09/13/19 at 1008 by HAI VARGHESE Pt tentatively accepted at [facility] pending final doctor approval at [facility]. ABIMAEL faxed updated clinicals. ABIMAEL will continue to follow. Addendum: 09/13/19 at 1346 by HAI VARGHESE Pt accepted at [facility], transportation set up for around [phone]. RN notified.
[2019-09-13 10:48] VITALS: BP 104/50
--- NOTE | 2019-09-13 12:33 | SNU/HH DC ---
DISCHARGE ORDERS DISCHARGE INFORMATION: FINAL DIAGNOSIS Problems Medical Problems: (1) Hip fracture, right Status: Acute CONDITION ON DISCHARGE: Stable CODE STATUS: Code Status: Full INTERMEDIATE: SNF STAY <30 DAYS: No HOSPICE: HOSPICE: No HOSPICE EVAL & TREAT: No LTAC: ADMIT TO LTAC: Yes POST DISCHARGE ORDERS: ACTIVITY ORDERS: Bedrest today DIET AFTER DISCHARGE: Cardiac TREATMENT/EQUIPMENT ORDERS: Physical Therapy For: Evalulation/Treatment Occupational Therapy For: Evaluation/Treatment DISCHARGE MEDICATIONS: Home Meds Reported Medications Lisinopril (LISINOPRIL) 40 Mg Tablet, 1 TAB PO DAILY for htn, #30 TAB 5 Refills 09/09/19 Simvastatin (SIMVASTATIN) 20 Mg Tablet, 1 TAB PO QHS for elevated cholesterol, #30 TAB 5 Refills 09/09/19 Sitagliptin Phosphate (JANUVIA) 100 Mg Tablet, 100 MG PO DAILY for dm, TAB 09/09/19 Metformin Hcl (METFORMIN HCL ER) 1,000 Mg Tab.er.24, 1000 MG PO BID for ANTI-D IABETIC, TAB 0 Refills 09/09/19 Metoprolol Succinate (METOPROLOL SUCCINATE ( XL )) 100 Mg Tab.er.24h, 1 TAB PO DAILY for hypertension, #30 TAB 5 Refills 09/09/19 LORENZA OWEN III DO Sep 13, 2019 12:33
--- NOTE | 2019-09-13 12:50 | DS ---
DATE OF DISCHARGE: 09/13/2019 ADMISSION DIAGNOSIS: Right hip fracture. DISCHARGE DIAGNOSIS: Postop open reduction and internal fixation of the right hip fracture. HOSPITAL COURSE: The patient is a pleasant elderly female, who presented with a right hip fracture after a fall. She was admitted. We consulted Orthopedics. She was taken for ORIF. PHYSICAL EXAMINATION: GENERAL: Today, I saw and examined her. She is doing well. HEART: Tones are normal. LUNGS: Clear. ABDOMEN: Is soft. We plan to discharge to [facility]. DISPOSITION: [facility]. ACTIVITY: As tolerated. DIET: Low sodium. MEDICATIONS: Please see the MRAD. TOTAL TIME: 36 minutes. LORENZA OWEN DO DR: EWA/sienna JOB#: [id number] / [id number]
[2019-09-13] MEDS ORDERED: PHENOL ORAL SPRAY 177ML BOTTLE. PO PRN (13:45)
--- NOTE | 2019-09-13 14:18 | NUR ---
Discharge Note: HELGA RAMIREZ Discharge instructions and discharge home medications reviewed with Patient and a copy given. All questions have been answered and understanding verbalized. The following instructions and handouts were given: Hip FX Discontinued lines and drains: Peripheral IV intact. Patient discharged to Rehab Facility with Family Member via Wheelchair
== END 2019-09-13 14:19 | DRG 480 ==
LOC: ER 12:42 → 4 NORTH 14:00
PROVIDERS: ADMIT Internal Medicine; ATTEND Internal Medicine
PROC: 0QS604Z Reposition Right Upper Femur with Internal Fixation Device, Open Approach (ICD-10-PCS; principal; 2019-09-11 11:30)
DX: S72.141A Displaced intertrochanteric fracture of right femur, initial encounter for closed fracture (principal); N17.0 Acute kidney failure with tubular necrosis; E87.1 Hypo-osmolality and hyponatremia; N18.4 Chronic kidney disease, stage 4 (severe); D53.9 Nutritional anemia, unspecified; D72.829 Elevated white blood cell count, unspecified; E11.22 Type 2 diabetes mellitus with diabetic chronic kidney disease; E11.65 Type 2 diabetes mellitus with hyperglycemia; E78.5 Hyperlipidemia, unspecified; I12.9 Hypertensive chronic kidney disease with stage 1 through stage 4 chronic kidney disease, or unspecified chronic kidney disease; Y92.009 Unspecified place in unspecified non-institutional (private) residence as the place of occurrence of the external cause; Z20.828 Contact with and (suspected) exposure to other viral communicable diseases; W18.39XA Other fall on same level, initial encounter; Y93.89 Activity, other specified; Y99.8 Other external cause status
CPT/HCPCS: 36415; 51702; 73502; 76000; 80048; 80053; 82306; 82607; 82962; 83036; 83540; 83550; 84443; 85007; 85025; 85610; 86850; 86900; 86901; 93005; 94760; 96374; 96375; 99285; A7015; C1713; C1887; J0171; J0360; J0690; J1100; J1170; J1650; J1815; J1885; J2270; J2370; J2405; J2704; J2795; J3010; J7120; 97110-GP; 97530-GO; 97530-GP; 97535-GO; G0378; U0003-CS